=== PATIENT | male | born 1960 | race Caucasian/White ===

== ENCOUNTER → 2017-08-31 | Outpatient (CLI) | payer BC ==
[~2017-08-31] MED LIST: AMOX500T PO; AMOX875T PO; BACL20TA PO; FURO-85 PO; INSDGI SC; MULT-506 PO; NAPR-1169 PO; NRN/300 PO; NVLG SC; VANC1SUS PO; VENL1CAP92 PO
[2017-08-31 18:24] LABS: BLOOD UREA NITROGEN 18 mg/dl (7-18); CREATININE 1.17 mg/dl (0.60-1.40)
--- NOTE | 2017-09-16 07:56 | CODING QUERY NO DIAGNOSIS ---
: 1960 TREATMENT RENDERED WITHOUT A DIAGNOSIS To promote full compliance with coding requirements relating to patient care, physician participation is requested in all cases of religion professor uncertainty. Please assist us with providing a diagnosis/symptom for the test(s) below: A diagnosis/symptom was not documented on your Order. A valid diagnosis/symptom is required to bill all insurances. Please remember that we are unable to code a diagnosis of rule out, probable, possible, questionable, or suspected. Tests that require a diagnosis for DOS 08/31/17: * BUN DIAGNOSIS: * CREATININE DIAGNOSIS: Provider Signature: Date: Thank you Abbie Lemon [employer] Once completed, please kindly fax back to [phone] For questions please call [phone]
== END | disposition home or self-care (01) ==
LOC: C.LAB 17:32
PROVIDERS: ATTEND Internal Medicine Infectious Disease
DX: Z01.89 Encounter for other specified special examinations (principal)

== ENCOUNTER → 2017-09-05 | Outpatient (CLI) | payer BC ==
[~2017-09-05] MED LIST changes: -AMOX500T PO; -AMOX875T PO; +GADAVIST IV PRN; +VANC1SUS; -VANC1SUS PO
--- NOTE | 2017-09-05 21:56 | DIAGNOSTIC IMAGING REPORT ---
L LOWER EXT NONJOINT COMBO CLINICAL HISTORY: 57 years-old Male presenting with LEFT FOOT, 1ST MRP, wound on left foot at the first metatarsal joint, chronic over 2 years, no pain, on antibiotics, history of second metatarsal amputation. TECHNIQUE: Multisequence, multiplanar MR imaging of the left foot was performed before and after the administration of intravenous contrast. IV contrast: 10 mL of Gadavist. COMPARISON: None. FINDINGS: Localizer images: Unremarkable. Extensive subcutaneous edema and skin thickening along the dorsum of the foot extending proximally to the level of the hindfoot/lateral malleolus. Minimal subcutaneous edema noted along the medial aspect of the hindfoot overlying the medial malleolus. Postsurgical changes of amputation of the distal and middle phalanges and head of the proximal phalanx of the second toe. T2 hyperintensity and T1 hypointensity of the head/distal metaphysis of the proximal phalanx of the third toe with involvement of the base of the middle phalanx of the third toe. The remainder of the phalanges demonstrate normal bone marrow signal intensity. The metatarsophalangeal joints demonstrate degenerative change but are otherwise normal. T2 hyperintensity and T1 hypointensity of the base and proximal diaphysis of the fifth metatarsal with intra-articular obliquely oriented fracture plane across the base of the fifth metatarsal evident. IMPRESSION: 1. Intra-articular fracture of the base of the fifth metatarsal with suspected reactive bone marrow edema. This may be subacute. 2. Abnormal bone marrow signal intensity in the head of the proximal phalanx of the third toe and base of the middle phalanx of the third toe concerning for osteomyelitis/septic arthritis of the proximal interphalangeal joint. 3. No other sites of osteomyelitis or septic arthritis suspected. 4. Extensive subcutaneous edema along the dorsum of the foot. Correlate for cellulitis. Electronically signed by: Bobby Montiel M.D. 09/05/2017 9:55 PM Dictated Date/Time: 09/05/2017 9:48 PM
== END | disposition home or self-care (01) ==
LOC: C.MRI 19:32
PROVIDERS: ATTEND Physician Assistant
DX: S91.105A Unspecified open wound of left lesser toe(s) without damage to nail, initial encounter (principal); X58.XXXA Exposure to other specified factors, initial encounter; R93.7 Abnormal findings on diagnostic imaging of other parts of musculoskeletal system; R60.0 Localized edema

== ENCOUNTER 2017-09-20 11:29 | Emergency (ER) | payer BC ==
[~2017-09-20] VITALS: Ht 172.7 cm; Wt 105.5 kg
[~2017-09-20 11:29] MED LIST changes: +AMOX500T PO; -GADAVIST IV PRN
[2017-09-20 11:34] VITALS: TEMP 36.4; Ht 172.7 cm; Wt 105.5 kg
[2017-09-20] MEDS ORDERED: SODIUM CHLORIDE 0.9% 1000ML 1,000 ML IV STA (11:59)
[2017-09-20] MEDS ORDERED: ONDANSETRON INJ 2 MG/ML 2 ML VIAL IV STA (11:59)
[2017-09-20 12:27] LABS: BASO % 0.1 %; BASO ABS # 0.02 K/uL (0-0.2); COMPLETE YES; HEMATOCRIT 44.1 % (42-52); IG% 0.3 %; LYMPH % 7.3 %; LYMPH ABS # 1.12 K/uL (1.2-3.4); MEAN CELL VOLUME 87.2 fL (80-100); MEAN CORPUSCULAR HEMOGLOBIN 30.4 pg (25-34); MEAN CORPUSCULAR HGB CONC 34.9 g/dl (32-36); MEAN PLATELET VOLUME 11.7 fL (7.4-10.4); MONO % 6.6 %; NEUT % 85.7 %; PLATELET COUNT 147 K/uL (130-400); RED BLOOD COUNT 5.06 M/uL (4.7-6.1); WHITE BLOOD COUNT 15.32 K/uL (4.8-10.8)
[2017-09-20 12:48] LABS: BUN/CREATININE RATIO 16.2 (10-20); CREATININE 1.48 mg/dl (0.60-1.40); POTASSIUM 3.4 mmol/L (3.5-5.1)
[2017-09-20] MEDS ORDERED: POTASSIUM CHLORIDE 10 MEQ TABCR PO STA (13:18)
[2017-09-20 14:10] VITALS: BP 123/61; PULSE 74; O2SAT 94
--- NOTE | 2017-09-20 17:27 | EMERGENCY ROOM VISIT NOTE ---
History Report prepared by Corby: Sarbjit Bullock Under the Supervision of: Dr. Ruperto Mancuso D.O. First contact with patient: 11:39 Chief Complaint: DIARRHEA Stated Complaint: C DIFF OSTEO MYLITIS INFECTION History of Present Illness The patient is a 57 year old male who presents to the Emergency Room with complaints of persistent diarrhea starting last night. The patient notes that he currently has C Diff, and last night he had a flare up. The patient states that he has had C Diff for three months. He was initially on Flagyl for 10 days , then 125mg of vancomycin for 6 weeks, and then he was switched to 500mg of vancomycin four times per day starting yesterday. The patient additionally notes that he currently has osteomyelitis in his toe, and he is currently on Augmentin for and follows up with the wound clinic. He notes that he has not been urinating very much recently. Pt denies headache, change in vision, fevers , chest pain, shortness of breath, nausea, vomiting, pain with urination, and melena. Source of History: patient Onset: last night Position: other (global) Quality: other (diarrhea) Timing: other (persistent) Associated Symptoms: No nausea, No vomiting, No abdominal pain Review of Systems See HPI for pertinent positives & negatives. A total of 10 systems reviewed and were otherwise negative. Past Medical & Surgical Medical Problems: (1) C. difficile colitis (2) Foot abscess, left Social History Smoking Status: Never Smoker Drug Use: none Marital Status: Occupation Status: employed Current/Historical Medications Scheduled Amoxicillin & Pot Clavulanate (Augmentin 500MG), 1 TAB PO BID Baclofen (Lioresal), 4 TABS PO QID Furosemide (Lasix), 20 MG PO QAM Gabapentin (Neurontin), 300 MG PO TID Insulin Aspart (Novolog), 1 DOSE SC UD Insulin Glargine (Lantus), 40 UNITS SC QPM Multivitamin (Multivitamin), 1 TAB PO QPM Venlafaxine Hcl (Effexor Xr), 1 CAP PO QAM Scheduled PRN Naproxen (Naprosyn), 500 MG PO BID PRN for Pain Miscellaneous Medications Vancomycin HCl (Vancomycin HCl + Syrspend) Allergies Coded Allergies: Linagliptin (Verified Allergy, Severe, ANAPHYLAXIS AND SORES ON TONGUE, ) Sitagliptin (Verified Allergy, Severe, ANAPHYLAXIS AND SORES ON TONGUE, ) Physical Exam Vital Signs Date Time Temp Pulse Resp B/P (MAP) Pulse Ox O2 Delivery O2 Flow Rate FiO2 09/20/17 14:10 74 18 123/61 94 09/20/17 13:11 84 18 116/88 95 Room Air 09/20/17 11:34 36.4 93 20 138/88 97 Room Air Physical Exam GENERAL: Sitting up in bed, disheveled, no acute distress. EYE EXAM: normal conjunctiva. OROPHARYNX: no exudate, no erythema, lips, buccal mucosa, and tongue normal and mucous membranes are dry. NECK: supple, no nuchal rigidity, no adenopathy, non-tender LUNGS: Clear to auscultation. Normal chest wall mechanics HEART: no murmurs, S1 normal and S2 normal ABDOMEN: abdomen soft, non-tender, normo-active bowel sounds, no masses, no rebound or guarding. BACK: Back is symmetrical on inspection and there is no deformity, no midline tenderness, no CVA tenderness. SKIN: no rashes and no bruising UPPER EXTREMITIES: upper extremities are grossly normal. LOWER EXTREMITIES: 1 x 1.5cm ulcer on the plantar surface of the first MTP on the left foot. No pitting edema. NEURO EXAM: Normal sensorium, cranial nerves II-XII grossly intact, normal speech, no gross weakness of arms, no gross weakness of legs. Gross sensation intact. Medical Decision & Procedures Laboratory Results 09/20/17 12:05 Red Blood Count 5.06, Mean Corpuscular Volume 87.2, Mean Corpuscular Hemoglobin 30.4, Mean Corpuscular Hemoglobin Concent 34.9, Mean Platelet Volume 11.7, Neutrophils (%) (Auto) 85.7, Lymphocytes (%) (Auto) 7.3, Monocytes (%) (Auto) 6.6, Eosinophils (%) (Auto) 0.0, Basophils (%) (Auto) 0.1, Neutrophils # (Auto) 13.13, Lymphocytes # (Auto) 1.12, Monocytes # (Auto) 1.01, Eosinophils # (Auto) 0.00, Basophils # (Auto) 0.02 09/20/17 12:05 Test 09/20/17 12:05 White Blood Count 15.32 K/uL (4.8-10.8) Red Blood Count 5.06 M/uL (4.7-6.1) Hemoglobin 15.4 g/dL (14.0-18.0) Hematocrit 44.1 % (42-52) Mean Corpuscular Volume 87.2 fL (80-100) Mean Corpuscular Hemoglobin 30.4 pg (25-34) Mean Corpuscular Hemoglobin Concent 34.9 g/dl (32-36) Platelet Count 147 K/uL (130-400) Mean Platelet Volume 11.7 fL (7.4-10.4) Neutrophils (%) (Auto) 85.7 % Lymphocytes (%) (Auto) 7.3 % Monocytes (%) (Auto) 6.6 % Eosinophils (%) (Auto) 0.0 % Basophils (%) (Auto) 0.1 % Neutrophils # (Auto) 13.13 K/uL (1.4-6.5) Lymphocytes # (Auto) 1.12 K/uL (1.2-3.4) Monocytes # (Auto) 1.01 K/uL (0.11-0.59) Eosinophils # (Auto) 0.00 K/uL (0-0.5) Basophils # (Auto) 0.02 K/uL (0-0.2) RDW Standard Deviation 45.5 fL (36.4-46.3) RDW Coefficient of Variation 14.3 % (11.5-14.5) Immature Granulocyte % (Auto) 0.3 % Immature Granulocyte # (Auto) 0.04 K/uL (0.00-0.02) Anion Gap 12.0 mmol/L (3-11) Est Creatinine Clear Calc Drug Dose 64.8 ml/min Estimated GFR () 60.0 Estimated GFR (Non- 51.8 BUN/Creatinine Ratio 16.2 (10-20) Calcium Level 9.0 mg/dl (8.5-10.1) Total Bilirubin 1.6 mg/dl (0.2-1) Direct Bilirubin 0.3 mg/dl (0-0.2) Aspartate Amino Transf (AST/SGOT) 21 U/L (15-37) Alanine Aminotransferase (ALT/SGPT) 27 U/L (12-78) Alkaline Phosphatase 115 U/L (45-117) Total Protein 7.6 gm/dl (6.4-8.2) Albumin 3.4 gm/dl (3.4-5.0) Lipase 80 U/L (73-393) Laboratory results per my review. Medications Administered Medications (Trade) Dose Ordered Sig/Guillermo Route Start Time Stop Time Status Last Admin Dose Admin Sodium Chloride 1,000 ml @ 999 mls/hr Q1H1M STAT IV 09/20/17 11:59 09/20/17 12:59 DC 09/20/17 12:08 999 MLS/HR Ondansetron HCl (Zofran Inj) 4 mg NOW STAT IV 09/20/17 11:59 09/20/17 12:00 DC 09/20/17 12:14 4 MG Potassium Chloride (Klor-Con M10) 40 meq NOW STAT PO 09/20/17 13:18 09/20/17 13:19 DC 09/20/17 14:00 40 MEQ ED Course ED COURSE: Vital signs were reviewed and showed normal vitals The patients medical record was reviewed The above diagnostic studies were performed and reviewed. ED treatments and interventions as stated above. 1139: The patient was evaluated in room B6. A complete history and physical examination was performed. 1159: Zofran 4mg IV, Sodium Chloride 1000 ml @ 999 mls/hr IV 1315: I discussed the patient's case with Dr. Olson - Infectious Disease, and she recommends following up as an outpatient. 1318: Potassium Chloride 40meq PO 1319: Upon reevaluation, the patient is doing well.I discussed my findings with the patient and he understands and agrees with the treatment plan. Based on the patients age, coexisting illnesses, exam and lab findings the decision to treat as an outpatient was made. The patient remained stable while under my care. The patient appeared well at the time of discharge. Medical Decision Differential diagnoses includes but is not limited to gastritis, peptic ulcer disease, GERD, gallbladder disease, pancreatitis, small bowel obstruction, acute coronary syndrome, pericarditis, ischemic bowel, irritable bowel disease, irritable bowel syndrome, appendicitis, diverticulitis, malignancy, hernia, urinary tract infection, torsion, perforation, trauma, infectious. Patient is a 57-year-old male presents to ER for diarrhea which worsened last night. He has been treated for C. difficile for over 2 months. He's been on oral Flagyl and then vancomycin 125 mg. Yesterday he was increased to 500 mg of oral vancomycin 4 times a day. CBC shows a leukocytosis of 15,000. BMP shows a mild hyponatremia with potassium 3.4. Creatinine is 1.4. T bili 1.6. Lipase and LFTs were normal. Patient has absolutely no abdominal pain. No imaging obtained. No signs of peritonitis. Discussed with infectious disease. They recommended continuing the antibiotics and patient follow-up as an outpatient. Patient was updated bedside. He is discharged follow-up. Discussed with Pt concerning signs and symptoms to watch out for. Pt was instructed to follow up with their PCP and discussed with the patient their option to return to the ED at anytime for persistent or worsening symptoms. The appropriate anticipatory guidance and out-patient management, including indications for return to the emergency department, were explained at length to the patient and understood. Medication Reconcilliation Current Medication List: was personally reviewed by me Blood Pressure Screening Patient's blood pressure: Normal blood pressure Consults Time Called: 1313 Consulting Physician: Dr. Olson Returned Call: 1315 I discussed the patient's case with Dr. Olson - Infectious Disease, and she recommends following up as an outpatient. Impression Primary Impression: C. difficile diarrhea Additional Impressions: Osteomyelitis Hypokalemia Scribe Attestation The scribe's documentation has been prepared under my direction and personally reviewed by me in its entirety. I confirm that the note above accurately reflects all work, treatment, procedures, and medical decision making performed by me. Departure Information Dispostion Home / Self-Care Referrals Naun Salcedo M.D. (PCP) Forms HOME CARE DOCUMENTATION FORM, IMPORTANT VISIT INFORMATION, WORK / SCHOOL INSTRUCTIONS Patient Instructions Clostridium Difficile Infec, My [facility] Additional Instructions Please follow up with your primary care doctor with in the next 24 hours. Any worsening of your symptoms, please return to the ED immediately. This includes any fevers greater than 100.4, worsening pain, chest pain, shortness breath, persistent nausea, vomiting, unable to eat or drink, or any other concerning signs or symptoms from your standpoint. Continue your antibiotics and follow-up with infectious disease and primary care doctor within 24 hours. Problem Qualifiers Additional Impressions: Osteomyelitis Osteomyelitis type: unspecified type Osteomyelitis location: unspecified site Qualified Codes: M86.9 - Osteomyelitis, unspecified
== END 2017-09-20 14:12 | disposition home or self-care (01) ==
LOC: C.EDB 11:32
DX: A04.72 Enterocolitis due to Clostridium difficile, not specified as recurrent (principal); M86.9 Osteomyelitis, unspecified; E87.6 Hypokalemia; D72.829 Elevated white blood cell count, unspecified; Z87.19 Personal history of other diseases of the digestive system; Z79.4 Long term (current) use of insulin; Z79.899 Other long term (current) drug therapy; Z88.8 Allergy status to other drugs, medicaments and biological substances

== ENCOUNTER → 2017-10-05 | Outpatient (CLI) | payer BC ==
[~2017-10-05] MED LIST changes: +AMOX875T PO; +CEFD300C2 PO; +CEPH500C2 PO; -NAPR-1169 PO; +NAPR-22 PO; +SULF800T23 PO; +VANC1CAP3 PO; -VANC1SUS; +VANC1SUS PO; -VENL1CAP92 PO; +VENL37.52 PO
== END | disposition home or self-care (01) ==
LOC: C.RDSM 11:49
PROVIDERS: ATTEND Physical Medicine & Rehabilitation Sports Medicine
DX: M86.9 Osteomyelitis, unspecified (principal)

== ENCOUNTER 2017-10-07 11:39 | Emergency (ER) | payer BC ==
[~2017-10-07] VITALS: Ht 172.7 cm; Wt 100.0 kg
[~2017-10-07 11:39] MED LIST changes: -AMOX875T PO; -CEFD300C2 PO; -CEPH500C2 PO; -SULF800T23 PO; -VANC1CAP3 PO
[2017-10-07 11:44] VITALS: TEMP 36.6; Ht 172.7 cm; Wt 100.0 kg
--- NOTE | 2017-10-07 12:31 | EMERGENCY ROOM VISIT NOTE ---
History Report prepared by Corby: Rod Ortiz Under the Supervision of: Dr. Gregg Martinez M.D. First contact with patient: 11:57 Chief Complaint: FOOT PAIN Stated Complaint: FOOT BRUISING, HX OF OSTEOMYELITIS W/OPEN WOUND History of Present Illness The patient is a 57 year old white male with a past medical history of C. Diff, DM2, osteomyelitis of the spine and the foot, titanium brace placement who presents to the ED with a cc of constant foot pain beginning last night. Positive left foot blood blister. Negative change in insulin. The patient states that he follows up with wound care for his history of foot problems and states that there was no issues two days ago. He states that last night a blood blister on his left foot popped in the middle of the night. He reports that his whole foot blackened the next day. Per the patient's EMR, the patient had a grade 1 diabetic ulcer on his left foot. The debridement was performed on 10/[address] Robledo. The patient states that he has been using Mulu and has been changing his wound dressings every days. Source of History: patient Onset: last night Position: foot (left) Quality: other (blister) Timing: constant Review of Systems See HPI for pertinent positives and negatives. A total of ten systems were reviewed and were otherwise negative. Past Medical & Surgical Medical Problems: (1) C. difficile colitis (2) Foot abscess, left Family History Patient reports no known family medical history. Social History Smoking Status: Never Smoker Drug Use: none Marital Status: Occupation Status: employed Current/Historical Medications Scheduled Baclofen (Lioresal), 40 MG PO QID Furosemide (Lasix), 20 MG PO QAM Gabapentin (Neurontin), 300 MG PO TID Insulin Aspart (Novolog), 1 DOSE SC UD Insulin Glargine (Lantus), 40 UNITS SC QPM Multivitamin (Multivitamin), 1 TAB PO QPM Vancomycin HCl (Vancomycin HCl + Syrspend), 1 DOSE PO SLIDING SCALE Venlafaxine Hcl (Effexor Xr), 1 CAP PO QAM Scheduled PRN Naproxen (Naprosyn), 500 MG PO BID PRN for Pain Allergies Coded Allergies: Linagliptin (Verified Allergy, Severe, ANAPHYLAXIS AND SORES ON TONGUE, ) Sitagliptin (Verified Allergy, Severe, ANAPHYLAXIS AND SORES ON TONGUE, ) Physical Exam Vital Signs Date Time Temp Pulse Resp B/P (MAP) Pulse Ox O2 Delivery O2 Flow Rate FiO2 10/07/17 14:38 64 18 136/91 99 Room Air 10/07/17 11:44 36.6 61 18 135/84 98 Room Air Physical Exam GENERAL: Awake, alert, well-appearing, NAD, obese HENT: Normocephalic, atraumatic. EYES: Normal conjunctiva. Sclera non-icteric. NECK: Supple. No nuchal rigidity. FROM. RESPIRATORY: CTAB, no rhonchi, wheezing, crackles CARDIAC: RRR, no MRG ABDOMEN: Soft, NTND, BS+ MSK: No chest wall TTP, no LE edema NEURO: GCS 15, CN 2-12 intact, moves all 4s on command SKIN: No rash or jaundice noted. blistering to left great toe plantar aspect of the distal foot at the bases of the first and second phalanx of the foot. Stage 2 ulcer to the proximal of the first phalanx. Expanding redness up to the midfoot on the dorsal aspect Medical Decision & Procedures ER Provider Diagnostic Interpretation: X-ray: Per my interpretation, radiologist review. RIGHT FOOT 3 VIEWS CLINICAL HISTORY: Diabetic ulcer. Hemorrhagic bullae. FINDINGS: 3 views of the right foot are obtained. No prior studies are available for comparison at the time of dictation. The skeletal structures are osteopenic. There is a hallux valgus deformity with arthritic change at the first metatarsophalangeal joint. There is dilatation of the second toe through the distal shaft of the second proximal phalanx. There is a subacute appearing/healing fracture through the base of the fifth metatarsal. Arthritic changes present involving the interphalangeal joints of the third toe. No bony erosion or periostitis is identified. A large plantar calcaneal enthesophyte is observed. Diffuse soft tissue edema is present throughout the foot, greatest in the first toe. Small foci of subcutaneous gas are suggested medial to the first metatarsophalangeal joint, possibly resulting ulceration. No radiodense foreign body is identified. IMPRESSION: 1. There is a subacute appearing/healing fracture through the base of the fifth metatarsal. 2. Osteopenia, hallux valgus, and arthritic change as above. 3. 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 4. Diffuse soft tissue edema is present throughout the foot, greatest in the first toe. 5. Foci of subcutaneous gas are seen medial to the first metatarsophalangeal joint and may be related to ulceration. Clinical correlation will be essential. Electronically signed by: London Mendoza M.D. 10/07/2017 1:28 PM Dictated Date/Time: 10/07/2017 1:26 PM Laboratory Results 10/07/17 13:15 Red Blood Count 4.95, Mean Corpuscular Volume 88.9, Mean Corpuscular Hemoglobin 29.9, Mean Corpuscular Hemoglobin Concent 33.6, Mean Platelet Volume 11.7, Neutrophils (%) (Auto) 55.7, Lymphocytes (%) (Auto) 35.9, Monocytes (%) (Auto) 5.1, Eosinophils (%) (Auto) 2.6, Basophils (%) (Auto) 0.6, Neutrophils # (Auto) 3.86, Lymphocytes # (Auto) 2.49, Monocytes # (Auto) 0.35, Eosinophils # (Auto) 0.18, Basophils # (Auto) 0.04 10/07/17 13:15 Test 10/07/17 13:15 10/07/17 13:16 White Blood Count 6.93 K/uL (4.8-10.8) Red Blood Count 4.95 M/uL (4.7-6.1) Hemoglobin 14.8 g/dL (14.0-18.0) Hematocrit 44.0 % (42-52) Mean Corpuscular Volume 88.9 fL (80-100) Mean Corpuscular Hemoglobin 29.9 pg (25-34) Mean Corpuscular Hemoglobin Concent 33.6 g/dl (32-36) Platelet Count 145 K/uL (130-400) Mean Platelet Volume 11.7 fL (7.4-10.4) Neutrophils (%) (Auto) 55.7 % Lymphocytes (%) (Auto) 35.9 % Monocytes (%) (Auto) 5.1 % Eosinophils (%) (Auto) 2.6 % Basophils (%) (Auto) 0.6 % Neutrophils # (Auto) 3.86 K/uL (1.4-6.5) Lymphocytes # (Auto) 2.49 K/uL (1.2-3.4) Monocytes # (Auto) 0.35 K/uL (0.11-0.59) Eosinophils # (Auto) 0.18 K/uL (0-0.5) Basophils # (Auto) 0.04 K/uL (0-0.2) RDW Standard Deviation 44.9 fL (36.4-46.3) RDW Coefficient of Variation 13.8 % (11.5-14.5) Immature Granulocyte % (Auto) 0.1 % Immature Granulocyte # (Auto) 0.01 K/uL (0.00-0.02) Erythrocyte Sedimentation Rate 25 mm/hr (0-14) Anion Gap 5.0 mmol/L (3-11) Est Creatinine Clear Calc Drug Dose 128.0 ml/min Estimated GFR () 119.3 Estimated GFR (Non- 103.0 BUN/Creatinine Ratio 27.1 (10-20) Lactic Acid Level 1.6 mmol/L (0.4-2.0) Calcium Level 9.0 mg/dl (8.5-10.1) C-Reactive Protein 0.61 mg/dl (0-0.29) Venous Blood pH 7.34 (7.36-7.41) Venous Blood Partial Pressure CO2 61 mmHg (38.0-50.0) Venous Blood Partial Pressure O2 20 mmHg Venous Blood HCO3 32 mmol/L Venous Blood Oxygen Saturation < 60.0 % Venous Blood Base Excess 4.4 mEq/L Laboratory results reviewed by me Procedure Incision & Drainage Indication: Bullae. Location: R foot Verbal consent was obtained after the risks and benefits were explained, including but not limited to bleeding, scarring, infection, pain, and bone/joint /nerve damage. At this time, the risks of the procedure are less than the risks of NOT performing the procedure. A time out was taken and the correct patient and site identified. The skin was prepped with betadine and a sterile field set. The bullae cavity was entered with a number 11 blade and serous material expressed. Copious irrigation was performed using NS. The wound was explored for foreign bodies and none found. The skin was removed which exposed normal healthy tissue. Aquacel was applied over the tissue. The rest of the wound was bandaged and secured in appropriate fashion. Detailed wound care instructions and signs and symptoms of worsening infection reviewed with the patient. No complications and the patient tolerated the procedure well. ED Course 1213: The patient was evaluated in room C05. A complete history and physical exam was performed. 1305: I discussed the patients case with Dr. Robledo, [facility] [place] [facility]. He suggests I open up the blisters and use Aquacel pads. He states there should be no antibiotic use and he will see the patient on Tuesday for a follow up. 1320: I reevaluated the patient and updated him on his results. 1420: I performed an incision and drainage. See procedure notes for further detail 1431: I reevaluated the patient. Discussed results and discharge instructions: He verbalized understanding and agreement. The patient is ready for discharge. Medical Decision Triage Nursing notes reviewed. The patient is a 57 year old white male with a past medical history of C. Diff, DM2, osteomyelitis of the spine and the foot, titanium brace placement who presents to the ED with a cc of constant foot pain beginning last night. The patient's presentation and history were concerning for Etiologies such as cellulitis, abscess, MRSA infection, DVT, necrotizing fasciitis, dermatitis, drug eruption, as well as others were entertained. Patient was seen and evaluated the bedside. Patient is a history of chronic right foot ulcer. Patient is that he had a large blood blister that ruptured early this morning. Patient denies any other systemic symptoms. Patient did have blood work that was completed along with a right foot film. Patient had a normal white blood cell count normal kidney function. Patient did have mild elevations ESR and CRP. Patient did have a VBG was completed that does show he has some hypercarbia however the patient's bicarbonate is 31 this is likely chronic in nature. Patient did have a normal lactic acid. Patient did have plain film that did show some soft tissue swelling and subcutaneous gas however this is likely related to the bulla that were present on the foot. I do not believe that the patient has necrotizing fasciitis is the patient has a normal white blood cell count, sodium, along with the patient's history and physical exam. I did speak with his wound care clinic physician Dr. Robledo recommended that we debride the wound, send a wound culture, and have him follow up in clinic. Patient does have a scheduled appointment on Tuesday. Patient tolerated the procedure well and the patient did have some Aquacel that was placed in addition to some gauze. Dr. Robledo asked for us to avoid any antibiotics. Patient was deemed suitable for outpatient follow-up and treatment the patient does have an outpatient appointment. Patient was given strict follow-up, discharge, and return precautions. All questions were answered. Patient was deemed suitable for outpatient follow-up at this time. Patient agreed with the plan of care and was safely discharged home. Medication Reconcilliation Current Medication List: was personally reviewed by me Blood Pressure Screening Patient's blood pressure: Elevated blood pressure Blood pressure disposition: Referred to PCP Consults Time Called: 1303 Consulting Physician: [facility] Returned Call: 1305 I discussed the patients case with [facility]. He suggests I open up the blisters and use Aquacel pads. He states there should be no antibiotic use and he will see the patient on Tuesday for a follow up. Impression Primary Impression: Skin bulla Additional Impression: Diabetic foot ulcer Scribe Attestation The scribe's documentation has been prepared under my direction and personally reviewed by me in its entirety. I confirm that the note above accurately reflects all work, treatment, procedures, and medical decision making performed by me. Departure Information Dispostion Home / Self-Care Referrals Alee Santo CRNP (PCP) Patient Instructions Diabetic Foot Ulcer Dc, ED Wound Care, [facility] Additional Instructions Please return to the emergency department if you have worsening or recurrent symptoms not amenable to at-home treatment. Please call for a follow-up appointment with her primary care physician. Please take your medications as prescribed. If you have other concerns and/or complaints please feel free to also call your primary care physician's office or return the ED for further evaluation, management, and treatment. You were found to have an elevated blood pressure today (>120 sytolic or >90 diastolic). Per medicare guidelines, you need to follow up with this blood pressure screening with your Primary Care Physician (PCP). For a new PCP call [phone]. You may take tylenol 1000 mg every 6 hours as needed for pain. Avoid NSAIDs and please continue to do your daily dressing changes as described. Please keep her follow-up appointment with Dr. Robledo. Take your medications as prescribed. If taking an antibiotic consider taking a probiotic and/or eating yogurt, but at the least, please take with food as it can cause upset stomach. If culture results are not available at discharge, if they are positive for concern of infection, you will be informed of the results as soon as they are available. If you were seen between 11pm and 7AM all radiology reads will be re-read by our in house staff. If any major discrepancies are discovered, you will be notified. You have been examined and treated today on an emergency basis only. This is not a substitute for, or an effort to provide, complete comprehensive medical care. It is impossible to recognize and treat all injuries or illnesses in a single emergency department visit. It is therefore important that you follow up closely with [facility], your PCP, and/or your specialist(s). Call as soon as possible for an appointment. Thank you for your time and consideration. I look forward to speaking with you again soon. Please don't hesitate to call us if you have any questions. Problem Qualifiers Additional Impression: Diabetic foot ulcer Diabetic foot ulcer location: midfoot Diabetes mellitus type: type 1 Laterality: left Non-pressure ulcer stage: with fat layer exposed Qualified Codes: E10.621 - Type 1 diabetes mellitus with foot ulcer; L97.422 - Non- pressure chronic ulcer of left heel and midfoot with fat layer exposed
--- NOTE | 2017-10-07 13:30 | DIAGNOSTIC IMAGING REPORT ---
RIGHT FOOT 3 VIEWS CLINICAL HISTORY: Diabetic ulcer. Hemorrhagic bullae. FINDINGS: 3 views of the right foot are obtained. No prior studies are available for comparison at the time of dictation. The skeletal structures are osteopenic. There is a hallux valgus deformity with arthritic change at the first metatarsophalangeal joint. There is dilatation of the second toe through the distal shaft of the second proximal phalanx. There is a subacute appearing/healing fracture through the base of the fifth metatarsal. Arthritic changes present involving the interphalangeal joints of the third toe. No bony erosion or periostitis is identified. A large plantar calcaneal enthesophyte is observed. Diffuse soft tissue edema is present throughout the foot, greatest in the first toe. Small foci of subcutaneous gas are suggested medial to the first metatarsophalangeal joint, possibly resulting ulceration. No radiodense foreign body is identified. IMPRESSION: 1. There is a subacute appearing/healing fracture through the base of the fifth metatarsal. 2. Osteopenia, hallux valgus, and arthritic change as above. 3. 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 4. Diffuse soft tissue edema is present throughout the foot, greatest in the first toe. 5. Foci of subcutaneous gas are seen medial to the first metatarsophalangeal joint and may be related to ulceration. Clinical correlation will be essential. Electronically signed by: London Mendoza M.D. 10/07/2017 1:28 PM Dictated Date/Time: 10/07/2017 1:26 PM
[2017-10-07 13:45] LABS: BASO % 0.6 %; BASO ABS # 0.04 K/uL (0-0.2); EOS % 2.6 %; EOS ABS # 0.18 K/uL (0-0.5); HEMOGLOBIN 14.8 g/dL (14.0-18.0); IG# 0.01 K/uL (0.00-0.02); LYMPH % 35.9 %; LYMPH ABS # 2.49 K/uL (1.2-3.4); MEAN CELL VOLUME 88.9 fL (80-100); MEAN CORPUSCULAR HEMOGLOBIN 29.9 pg (25-34); MEAN CORPUSCULAR HGB CONC 33.6 g/dl (32-36); MEAN PLATELET VOLUME 11.7 fL (7.4-10.4); MONO % 5.1 %; MONO ABS # 0.35 K/uL (0.11-0.59); NEUT % 55.7 %; NEUT ABS # 3.86 K/uL (1.4-6.5); PLATELET COUNT 145 K/uL (130-400); RED CELL DISTRIBUTION WIDTH CV 13.8 % (11.5-14.5); RED CELL DISTRIBUTION WIDTH SD 44.9 fL (36.4-46.3); WHITE BLOOD COUNT 6.93 K/uL (4.8-10.8)
[2017-10-07 14:03] LABS: CREATININE 0.73 mg/dl (0.60-1.40)
[2017-10-07 14:38] VITALS: BP 136/91; PULSE 64; O2SAT 99
[2017-10-11] MEDS ORDERED: VANC1SUS PO (09:24)
--- NOTE | 2017-10-11 13:46 | Pharmacy Progress Note ---
ED Pharmacist Culture FollowUp Date of Service: Oct 11, 2017. Patient was discharged with no antibiotics at the request of Dr. Robledo wound care until patient seen in wound care on 10/11. Surface wound cultures growing MSSA and proteus mirabilis. Called clinic and left message at [phone]. Call returned ~ [phone] by Katrina. Let her know of positive culture results, she thought that provider was aware but would follow-up with provider.
[2017-10-12] MEDS ORDERED: AMOX875T PO (10:22)
[2017-10-24] MEDS ORDERED: AMOX875T PO (12:44)
[2017-10-31] MEDS ORDERED: CEFD300C2 PO (13:47)
[2018-03-30] MEDS ORDERED: SULF800T23 PO (10:58)
[2018-04-03] MEDS ORDERED: VANC1CAP3 PO (10:08)
[2018-05-11] MEDS ORDERED: CEPH500C2 PO (11:42)
== END 2017-10-07 15:07 | disposition home or self-care (01) ==
LOC: C.EDB 11:40 → C.EDC 15:07
DX: R23.8 Other skin changes (principal); E11.621 Type 2 diabetes mellitus with foot ulcer; L97.422 Non-pressure chronic ulcer of left heel and midfoot with fat layer exposed; Z79.4 Long term (current) use of insulin; Z79.899 Other long term (current) drug therapy; E66.9 Obesity, unspecified

== ENCOUNTER → 2017-10-31 | Outpatient (CLI) | payer OTHER ==
[~2017-10-31] MED LIST changes: -AMOX500T PO; +AMOX875T PO; +CEFD300C2 PO; +NAPR-1169 PO; -NAPR-22 PO; +VENL1CAP92 PO; -VENL37.52 PO
== END | disposition home or self-care (01) ==
LOC: C.RDSM 11:00
PROVIDERS: ATTEND Physical Medicine & Rehabilitation Sports Medicine
DX: E11.621 Type 2 diabetes mellitus with foot ulcer (principal); M86.9 Osteomyelitis, unspecified; M79.672 Pain in left foot

== ENCOUNTER 2020-10-24 11:06 | Inpatient (IN) ==
[2020-10-24] MEDS ORDERED: MoRPHine SULFATE 4 MG/ML 1 ML CARP\\VIAL IV STA (11:49)
[2020-10-24] MEDS ORDERED: ONDANSETRON INJ 2 MG/ML 2 ML VIAL IV STA (11:49)
--- NOTE | 2020-10-24 11:57 | Emergency Department Note ---
History of Present Illness General Chief complaint: Toe Injury/Pain Stated complaint: GANGRENE LEFT GREAT TOE Time Seen by Provider: 10/24/20 11:17 History of Present Illness This patient is a 60-year-old male who presents emergency department via private vehicle for evaluation of an infection to his left great toe that has been going on for approximately 1 week. The patient accidentally hit his toe off of his wheelchair. Since then, he has noticed a wound to the medial aspect of the left toe. It has been oozing pus since then. He denies any fevers. He has neuropathy; therefore, the pain has not been significant. He has not taken anything for pain. He denies any other injuries. The patient has a history of diabetes. Home Medications Medication Instructions Recorded Confirmed Type Levemir U-100 Insulin 48 unit SUBCUT DAILY@1700 #0 08/02/17 10/24/20 History baclofen 40 mg PO HS #0 08/02/17 10/24/20 History gabapentin 300 mg PO TID #0 08/02/17 10/24/20 History lactobacillus combination no.4 3,000 mmu cells PO DAILY@1500 04/15/19 10/24/20 History [Probiotic] multivitamin 1 tab PO DAILY@2100 10/24/20 10/24/20 History Allergies Allergy/AdvReac Type Severity Reaction Status Date / Time linagliptin Allergy Severe ANAPHYLAXIS Verified 10/24/20 11:57 AND SORES ON TONGUE sitagliptin Allergy Severe ANAPHYLAXIS Verified 10/24/20 11:57 AND SORES ON TONGUE pantoprazole [From Protonix] AdvReac Unknown C-Diff Verified 10/24/20 11:57 Past Med/Surg History Medical History (Updated 10/24/20 @ 19:18 by Jessica Macias PA-C) Acquired claw toe of right foot Acquired hallux valgus of right foot Amputated toe of left foot Callus Diabetes mellitus, type 2 IDDM Gastric outlet obstruction Hallux valgus (acquired), left foot Hyperlipidemia Left midfoot ulcer Obesity Osteomyelitis of low back 04/2014 Patient's noncompliance with other medical treatment and regimen Type 2 diabetes mellitus with diabetic neuropathy Type 2 diabetes mellitus with diabetic polyneuropathy Surgical History H/O skin graft SKIN GRAFT- NON-HEALING LEFT GREAT TOE History of appendectomy History of colonoscopy History of elbow surgery left History of lumbar surgery multiple Family History Father Family history of diabetes mellitus Brother Family history of diabetes mellitus Social History Smoking Status: Never smoker Second Hand Exposure: No; Hx Alcohol Use: Yes Alcohol type: beer and wine Hx Substance Use: No Preferred Language: Eritrean Communication Ability: Effective Shank Inspector Required: No Beliefs That Will Affect Care: None Current Living Situation: Family Other Information That Helps Us Care for You: No Feels Safe at Home: Yes Safety Concerns: Feels Safe At This Time Assistive Devices: Wheelchair Review of Systems A total of 10 systems reviewed and were otherwise negative Physical Exam Vital Signs Vital Signs - 24 hr 10/24/20 11:08 10/24/20 11:59 10/24/20 13:07 Temperature 35.6 C L Temperature Source Oral Pulse Rate 74 Pulse Rate [Apical] 88 Respiratory Rate 20 18 Respiratory Effort / Characteristics Non-Labored Spontaneous Respiratory Depth Normal Respiratory Pattern Regular Blood Pressure 144/87 H Blood Pressure [Left Arm] 138/94 Blood Pressure Mean 106 Blood Pressure Mean [Left Arm] 108 Pulse Oximetry 98 98 98 Oxygen Delivery Method Room Air Room Air Room Air Sepsis Recent Fever Within 48 Hours No Sepsis New/Unexplained Change in Mental Status N/A Sepsis Action Taken by Nursing No Action Required 10/24/20 15:00 Temperature Temperature Source Pulse Rate Pulse Rate [Apical] 80 Respiratory Rate Respiratory Effort / Characteristics Respiratory Depth Respiratory Pattern Blood Pressure Blood Pressure [Left Arm] Blood Pressure Mean Blood Pressure Mean [Left Arm] Pulse Oximetry 98 Oxygen Delivery Method Room Air Sepsis Recent Fever Within 48 Hours Sepsis New/Unexplained Change in Mental Status Sepsis Action Taken by Nursing Constitutional WD/WN, vitals as above Eyes EOM intact bilaterally ENMT external ear and nose normal, oropharynx normal Neck trachea midline Respiratory normal respiratory effort, lungs clear to auscultation Cardiovascular RRR, no murmur, no edema Gastrointestinal (Abdomen) normal bowel sounds, soft, nontender, no hepatosplenomegaly Musculoskeletal 1.5 cm circular wound that is oozing green purulent fluid noted to the medial aspect of the left great toe. The entire toe is erythematous and warm to touch. Erythema noted to the entire left foot. Sensation in the toes on the left foot intact. No erythematous streaking noted over the left lower extremity. Skin no rashes, warm and dry Neurologic Alert and oriented x3. No focal motor deficits. Psychiatric Acting appropriately Course Course Patient was seen and examined Vital signs including blood pressure were reviewed medications list was verified with patient Labs were obtained, and a saline lock was established Sepsis work-up was ordered. Normal saline 1 L was ordered The area was cultured Imaging was performed and reviewed Upon reevaluation, the patient was resting comfortably. We discussed his results. He voiced understanding. The case was discussed with pharmacy in addition to my supervising physician who is in agreement with my plan. The case was then discussed with the admitting team. They agreed to evaluate the patient for likely inpatient management. Consultations Consultation #1: Dr. Nicholas Administered Medications Baclofen (Baclofen 20 Mg Tab) 40 mg PO HS [facility] Stop: 11/23/20 20:59 Last Admin: 10/24/20 22:52 Dose: 40 mg Documented by: [id number] Enoxaparin Sodium (Enoxaparin Inj 40 Mg/0.4 Ml Syr) 40 mg SQ Q12H [facility] Stop: 11/23/20 20:59 Last Admin: 10/25/20 08:33 Dose: 40 mg Documented by: [id number] Admin: 10/24/20 20:53 Dose: 40 mg Documented by: [id number] Gabapentin (Gabapentin 300 Mg Cap) 300 mg PO TID [facility] Stop: 11/23/20 20:59 Last Admin: 10/25/20 08:33 Dose: 300 mg Documented by: [id number] Admin: 10/24/20 20:54 Dose: 300 mg Documented by: [id number] Meropenem 500 mg/ Syringe 10 mls @ 2 mls/min IV Q8H ZA; Protocol Stop: 10/31/20 21:59 Last Admin: 10/25/20 05:59 Dose: 2 mls/min Documented by: [id number] Admin: 10/24/20 21:08 Dose: 2 mls/min Documented by: [id number] Insulin Aspart (Insulin Aspart 100 Units/Ml 3 Ml Pen) 0 units SC ACHS [facility] Stop: 11/23/20 17:28 Last Admin: 10/24/20 20:56 Dose: 3 units Documented by: [id number] Cosigned by: [id number] Admin: 10/24/20 19:06 Dose: Not Given Documented by: [id number] Cosigned by: [id number] Insulin Detemir (Insulin Detemir Flexpen/Flex Touch 100 Units/Ml 3ml) 48 units SC DAILY@1700 [facility] Stop: 11/23/20 17:59 Last Admin: 10/24/20 19:03 Dose: 30 units Documented by: [id number] Cosigned by: [id number] Multivitamins (Multivitamin Tab) 1 tab PO DAILY@2100 [facility] Stop: 11/23/20 20:59 Last Admin: 10/24/20 20:54 Dose: 1 tab Documented by: [id number] Saccharomyces Boulardii (Saccharomyces Boulardii 250 Mg Cap) 250 mg PO DAILY [facility] Stop: 11/23/20 15:44 Last Admin: 10/25/20 09:23 Dose: 250 mg Documented by: [id number] Admin: 10/24/20 18:54 Dose: Not Given Documented by: [id number] Discontinued Medications Sodium Chloride (Nss 1000ml) 1,000 mls @ 999 mls/hr IV .Q1H1M [facility] Stop: 10/24/20 13:00 Last Infusion: 10/24/20 13:31 Dose: 0 mls/hr Documented by: [id number] Admin: 10/24/20 12:22 Dose: 999 mls/hr Documented by: [id number] Meropenem 500 mg/ Syringe 10 mls @ 2 mls/min IV NOW STA; Protocol Stop: 10/24/20 12:41 Last Admin: 10/24/20 13:44 Dose: 2 mls/min Documented by: [id number] Daptomycin 500 mg/ Syringe 10 mls @ 5 mls/min IV NOW STA; Protocol Stop: 10/24/20 12:39 Last Admin: 10/24/20 13:45 Dose: 5 mls/min Documented by: [id number] Morphine Sulfate (Morphine Sulfate 4 Mg/Ml 1 Ml Carp\Vial) 4 mg IV NOW STA Stop: 10/24/20 11:50 Last Admin: 10/24/20 12:22 Dose: 4 mg Documented by: [id number] Ondansetron HCl (Ondansetron Inj 2 Mg/Ml 2 Ml Vial) 4 mg IV NOW STA Stop: 10/24/20 11:50 Last Admin: 10/24/20 12:22 Dose: 4 mg Documented by: [id number] Medical Decision Making Medical Records Attestation: I reviewed the patient's medical records. Home Medications Current Medication List: was personally reviewed by me Laboratory Data Attestation: I reviewed the patient's lab results. Result diagrams: 10/24/20 12:16 10/25/20 05:37 Lab Results 10/24/20 10/24/20 10/24/20 Range/Units 12:16 12:16 12:16 WBC 8.88 (4.8-10.8) K/uL RBC 5.24 (4.7-6.1) M/uL Hgb 15.6 (14.0-18.0) g/dL Hct 45.9 (42-52) % MCV 87.6 (80-100) fL MCH 29.8 (25-34) pg MCHC 34.0 (32-36) g/dL RDW Std Deviation 42.7 (36.4-46.3) fL RDW Coeff of Fer 13.4 (11.5-14.5) % Plt Count 201 (130-400) K/uL MPV 10.5 H (7.4-10.4) fL Immature Gran % (Auto) 0.2 % Neut % (Auto) 65.7 % Lymph % (Auto) 27.3 % Anderson % (Auto) 5.4 % Eos % (Auto) 1.1 % Baso % (Auto) 0.3 % Neut # (Auto) 5.83 (1.4-6.5) K/uL Lymph # (Auto) 2.42 (1.2-3.4) K/uL Anderson # (Auto) 0.48 (0.11-0.59) K/uL Eos # (Auto) 0.10 (0-0.5) K/uL Baso # (Auto) 0.03 (0-0.2) K/uL Immature Gran # (Auto) 0.02 (0.00-0.02) K/uL PT 11.1 (9.0-12.0) Seconds INR 1.1 (0.9-1.1) APTT 28.7 (21.0-31.0) Seconds PTT Ratio 1.0 Sodium 140 (136-145) mmol/L Potassium 3.5 (3.5-5.1) mmol/L Chloride 105 (98-107) mmol/L Carbon Dioxide 26 (21-32) mmol/L Anion Gap 10.0 (3-11) BUN 15 (7-18) mg/dl Creatinine 0.80 (0.6-1.4) mg/dl Est Cr Clr Drug Dosing 114.2 ml/min Est GFR ( Amer) 112.5 Est GFR (Non-Af Amer) 97.1 BUN/Creatinine Ratio 19.2 (10-20) Glucose 107 H (70-99) mg/dl Lactate (0.4-2.0) mmol/L Calcium 10.0 (8.5-10.1) mg/dl Magnesium 2.2 (1.8-2.4) mg/dl Total Bilirubin 0.9 (0.2-1) mg/dl AST 38 H (15-37) U/L ALT 49 (12-78) U/L Alkaline Phosphatase 158 H (45-117) U/L Total Protein 8.5 H (6.4-8.2) gm/dl Albumin 3.5 (3.4-5.0) gm/dl Globulin 4.9 H (2.5-4.0) gm/dl Albumin/Globulin Ratio 0.7 L (0.9-2) Procalcitonin (0-0.5) ng/ml COVID-19 Eval Order SARS-CoV-2, RNA, NAAT (NEGATIVE) 10/24/20 10/24/20 10/24/20 Range/Units 12:16 12:37 14:00 WBC (4.8-10.8) K/uL RBC (4.7-6.1) M/uL Hgb (14.0-18.0) g/dL Hct (42-52) % MCV (80-100) fL MCH (25-34) pg MCHC (32-36) g/dL RDW Std Deviation (36.4-46.3) fL RDW Coeff of Fer (11.5-14.5) % Plt Count (130-400) K/uL MPV (7.4-10.4) fL Immature Gran % (Auto) % Neut % (Auto) % Lymph % (Auto) % Anderson % (Auto) % Eos % (Auto) % Baso % (Auto) % Neut # (Auto) (1.4-6.5) K/uL Lymph # (Auto) (1.2-3.4) K/uL Anderson # (Auto) (0.11-0.59) K/uL Eos # (Auto) (0-0.5) K/uL Baso # (Auto) (0-0.2) K/uL Immature Gran # (Auto) (0.00-0.02) K/uL PT (9.0-12.0) Seconds INR (0.9-1.1) APTT (21.0-31.0) Seconds PTT Ratio Sodium (136-145) mmol/L Potassium (3.5-5.1) mmol/L Chloride (98-107) mmol/L Carbon Dioxide (21-32) mmol/L Anion Gap (3-11) BUN (7-18) mg/dl Creatinine (0.6-1.4) mg/dl Est Cr Clr Drug Dosing ml/min Est GFR ( Amer) Est GFR (Non-Af Amer) BUN/Creatinine Ratio (10-20) Glucose (70-99) mg/dl Lactate 1.2 (0.4-2.0) mmol/L Calcium (8.5-10.1) mg/dl Magnesium (1.8-2.4) mg/dl Total Bilirubin (0.2-1) mg/dl AST (15-37) U/L ALT (12-78) U/L Alkaline Phosphatase (45-117) U/L Total Protein (6.4-8.2) gm/dl Albumin (3.4-5.0) gm/dl Globulin (2.5-4.0) gm/dl Albumin/Globulin Ratio (0.9-2) Procalcitonin 1.47 H (0-0.5) ng/ml COVID-19 Eval [facility] SARS-CoV-2, RNA, NAAT (NEGATIVE) 10/24/20 Range/Units 14:00 WBC (4.8-10.8) K/uL RBC (4.7-6.1) M/uL Hgb (14.0-18.0) g/dL Hct (42-52) % MCV (80-100) fL MCH (25-34) pg MCHC (32-36) g/dL RDW Std Deviation (36.4-46.3) fL RDW Coeff of Fer (11.5-14.5) % Plt Count (130-400) K/uL MPV (7.4-10.4) fL Immature Gran % (Auto) % Neut % (Auto) % Lymph % (Auto) % Anderson % (Auto) % Eos % (Auto) % Baso % (Auto) % Neut # (Auto) (1.4-6.5) K/uL Lymph # (Auto) (1.2-3.4) K/uL Anderson # (Auto) (0.11-0.59) K/uL Eos # (Auto) (0-0.5) K/uL Baso # (Auto) (0-0.2) K/uL Immature Gran # (Auto) (0.00-0.02) K/uL PT (9.0-12.0) Seconds INR (0.9-1.1) APTT (21.0-31.0) Seconds PTT Ratio Sodium (136-145) mmol/L Potassium (3.5-5.1) mmol/L Chloride (98-107) mmol/L Carbon Dioxide (21-32) mmol/L Anion Gap (3-11) BUN (7-18) mg/dl Creatinine (0.6-1.4) mg/dl Est Cr Clr Drug Dosing ml/min Est GFR ( Amer) Est GFR (Non-Af Amer) BUN/Creatinine Ratio (10-20) Glucose (70-99) mg/dl Lactate (0.4-2.0) mmol/L Calcium (8.5-10.1) mg/dl Magnesium (1.8-2.4) mg/dl Total Bilirubin (0.2-1) mg/dl AST (15-37) U/L ALT (12-78) U/L Alkaline Phosphatase (45-117) U/L Total Protein (6.4-8.2) gm/dl Albumin (3.4-5.0) gm/dl Globulin (2.5-4.0) gm/dl Albumin/Globulin Ratio (0.9-2) Procalcitonin (0-0.5) ng/ml COVID-19 Eval Order SARS-CoV-2, RNA, NAAT NEGATIVE (NEGATIVE) Imaging Data Attestation: I personally reviewed and interpreted this imaging study as follows: Radiologist's Impression: X-ray left toe IMPRESSION: 1. No acute bony abnormality is identified. 2. There is a soft tissue ulceration the first toe with evidence of surrounding cellulitis and associated soft tissue edema. 3. A tiny metallic foreign bodies present within the plantar soft tissues of the fifth toe. 4. Osteopenia, hallux valgus, with chronic postoperative, posttraumatic, and degenerative changes as above. Electronically signed by: London Mendoza M.D. 10/24/2020 12:35 PM Dictated: 10/24/20 1232 Transcribed: 10/24/20 1232 [facility] Narrative Differential diagnosis: Osteomyelitis, cellulitis, sepsis, DVT, PAD, among others This patient is a pleasant 60-year-old male who presents the emergency department complaining of inflammation of his left great toe after an injury. On exam, he does have an ulceration to the left great toe. It is draining purulent fluid.. He is afebrile. He was neurovascularly intact. A work-up was performed. There is no leukocytosis. X-ray of the toe was performed. No signs of osteomyelitis. The patient does not have any erythematous streaking up the leg. I do not suspect sepsis. The patient has however grown out antibiotic resistant bacteria in the past. For this reason and do to his comorbidities, I felt it was appropriate to consult the hospitalist for possible inpatient management. I also consulted pharmacy. He was given broad-spectrum antibiotics in the emergency department. He will be evaluated for likely inpatient management. Impression & Plan Cellulitis Discharge Plan Visit Data Chief Complaint: Toe Injury/Pain Stated Complaint: GANGRENE LEFT GREAT TOE ED Provider: Felipe Quinonez ED Midlevel Provider: Jessica Macias Discharge Problem: Cellulitis Patient Disposition: Admitted As Inpatient Condition: Fair Discharge Instructions Interventions: ED Discharge Assessment Last Done: 10/24/20 17:11
[2020-10-24] MEDS ORDERED: SODIUM CHLORIDE 0.9% 1000ML 1,000 ML IV SCH (12:00)
--- NOTE | 2020-10-24 12:36 | XRay Report ---
LEFT FIRST TOE 3 VIEWS CLINICAL HISTORY: First toe infection. FINDINGS: 3 views of the left first toe are correlated with radiographs of left foot dated 10/05/2017 . The skeletal structures are osteopenic. No acute fracture is identified. There is hallux valgus wit h moderate osteoarthritic change at the first metatarsophalangeal joint. Mild osteoarthritic change i s seen at the first interphalangeal joint. No bony erosion or periostitis is identified. A cutaneous defect along the medial aspect of the first toe suggests ulceration. There is diffuse soft tissue sridhar ma. There is amputation of the second toe through the shaft of the second proximal phalanx. Erosive o steoarthritic change is again seen at the third proximal interphalangeal joint. A tiny metallic forei gn body is seen within the soft tissues of the fifth toe. There is chronic posttraumatic deformity at the base of the fifth metatarsal. IMPRESSION: 1. No acute bony abnormality is identified. 2. There is a soft tissue ulceration the first toe with evidence of surrounding cellulitis and associ ated soft tissue edema. 3. A tiny metallic foreign bodies present within the plantar soft tissues of the fifth toe. 4. Osteopenia, hallux valgus, with chronic postoperative, posttraumatic, and degenerative changes as above. Electronically signed by: London Mendoza M.D. 10/24/2020 12:35 PM
[2020-10-24 12:37] LABS: Basophils # (auto) 0.03 K/uL (0-0.2); Basophils % (auto) 0.3 %; Eosinophils % (auto) 1.1 %; Hematocrit (blood only) 45.9 % (42-52); Hemoglobin 15.6 g/dL (14.0-18.0); Immature Granulocytes # (auto) 0.02 K/uL (0.00-0.02); Immature Granulocytes % (auto) 0.2 %; Lymphocytes # (auto) 2.42 K/uL (1.2-3.4); Lymphocytes % (auto) 27.3 %; Mean Corpuscular Hemoglobin 29.8 pg (25-34); Mean Corpuscular Volume 87.6 fL (80-100); Mean Platelet Volume 10.5 fL (7.4-10.4); Monocytes # (auto) 0.48 K/uL (0.11-0.59); Monocytes % (auto) 5.4 %; Neutrophils # (auto) 5.83 K/uL (1.4-6.5); Neutrophils % (auto) 65.7 %; Platelet Count 201 K/uL (130-400); RDW Coefficient of Variation 13.4 % (11.5-14.5); RDW Standard Deviation 42.7 fL (36.4-46.3); Red Blood Count 5.24 M/uL (4.7-6.1); White Blood Count 8.88 K/uL (4.8-10.8)
[2020-10-24] MEDS ORDERED: MEROPENEM 500 MG in SYRINGE 0 ML IV STA (12:37)
[2020-10-24] MEDS ORDERED: DAPTOmycin 500 MG in SYRINGE 0 ML IV STA (12:38)
[2020-10-24 12:48] LABS: INR 1.1 (0.9-1.1); Partial Thromboplastin Time 28.7 Seconds (21.0-31.0); Prothrombin Time 11.1 Seconds (9.0-12.0)
[2020-10-24 12:55] LABS: Albumin Level 3.5 gm/dl (3.4-5.0); BUN Creatinine Ratio 19.2 (10-20); Creatinine Clr Calc Pharmacy 114.2 ml/min; Est GFR (African American) 112.5; Est GFR (Non-African American) 97.1; Magnesium 2.2 mg/dl (1.8-2.4); Potassium 3.5 mmol/L (3.5-5.1)
[2020-10-24 12:59] LABS: Albumin Globulin Ratio 0.7 (0.9-2); Bilirubin,Total 0.9 mg/dl (0.2-1); Globulin 4.9 gm/dl (2.5-4.0); Total Protein 8.5 gm/dl (6.4-8.2)
--- NOTE | 2020-10-24 14:16 | History & Physical Report ---
Date of Service October 24, 2020 Assessment & Plan (1) Diabetic foot ulcer associated with type 2 diabetes mellitus: Pending culture results. Patient is broadly covered to include MRSA and pseudomonas. Appreciate pharmacy assistance. - await cultures, source control, dressing debridement, glucose control. - Trend biomarkers (2) GERD (gastroesophageal reflux disease): Continue lactobacillus. Patient states that symptoms are controlled, may have component of gastropaeresis. 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 Thank you for input and assistance. (6) Metabolic syndrome X: As above. Glucose control, monitor stress response, follow organ dysfunction. (7) DVT prophylaxis: VTE: SCD's, Lovenox Code: Full Diet: 1600 ada FSBG <160 Disposition-could possibly discharged home on p.o. Cipro and Keflex tomorrow while awaiting cultures after being seen by wound care if has close follow-up planned with wound care as an outpatient History of Present Illness Primary Care Provider: Naun Salcedo MD 60-year-old male comes emergency room for evaluation of her left great toe ulceration. Patient has a history of diabetes, kidney disease, multiple diabetic foot ulcers, C. difficile, osteomyelitis to spine in 2015 (following fall) and left second toe infection in 2017 resulting in amputation. Patient accidentally hit toe on his wheelchair approximately 1 week, while he was confused secondary to feeling ill from a "cold or flu" and tried to walk; resulting in hitting his toe on his wheel chair. The wound is associated with mild erythema, purulent drainage, and neuropathy is present as always. Patient was taking care of the wound at home with peroxide and algae dressing that he had left over. Yesterday in the shower "the blister" popped and "drained a large amount of yellow green fluid" per the patient. The drainage also had a strong odor to it. Patient has multiple wound cultures from the past July 2018 and September 2018 + for Enterococcus faecalis September 26 + for Klebsiella and Proteus mirabilis. Patient received 500 mg Meropenem and Daptomycin in the EMD, wound culture and blood culture pending, 1L 0.9% sodium Chloride. Q sofa 0, no organ dysfunction, normal lactate, PCT 1.47. Will admit patient to medicine floor for antibiotic therapy of diabetic foot ulcer awaiting cultures. Allergies Allergy/AdvReac Type Severity Reaction Status Date / Time linagliptin Allergy Severe ANAPHYLAXIS Verified 10/24/20 11:57 AND SORES ON TONGUE sitagliptin Allergy Severe ANAPHYLAXIS Verified 10/24/20 11:57 AND SORES ON TONGUE pantoprazole [From Protonix] AdvReac Unknown C-Diff Verified 10/24/20 11:57 Home Medications Medication Instructions Recorded Confirmed Type Levemir U-100 Insulin 48 unit SUBCUT DAILY@1700 #0 08/02/17 10/24/20 History baclofen 40 mg PO HS #0 08/02/17 10/24/20 History gabapentin 300 mg PO TID #0 08/02/17 10/24/20 History lactobacillus combination no.4 3,000 mmu cells PO DAILY@1500 04/15/19 10/24/20 History [Probiotic] multivitamin 1 tab PO DAILY@2100 10/24/20 10/24/20 History Past Med/Surg History Medical History (Updated 10/24/20 @ 19:18 by Jessica Macias PA-C) Acquired claw toe of right foot Acquired hallux valgus of right foot Amputated toe of left foot Callus Diabetes mellitus, type 2 IDDM Gastric outlet obstruction Hallux valgus (acquired), left foot Hyperlipidemia Left midfoot ulcer Obesity Osteomyelitis of low back 04/2014 Patient's noncompliance with other medical treatment and regimen Type 2 diabetes mellitus with diabetic neuropathy Type 2 diabetes mellitus with diabetic polyneuropathy Surgical History H/O skin graft SKIN GRAFT- NON-HEALING LEFT GREAT TOE History of appendectomy History of colonoscopy History of elbow surgery left History of lumbar surgery multiple Family History Father Family history of diabetes mellitus Brother Family history of diabetes mellitus Social History Smoking Status: Never smoker Second Hand Exposure: No; Hx Alcohol Use: Yes Alcohol type: beer and wine Hx Substance Use: No Preferred Language: Latvian Communication Ability: Effective Chamber Walker Required: No Beliefs That Will Affect Care: None Current Living Situation: Family Other Information That Helps Us Care for You: No Feels Safe at Home: Yes Safety Concerns: Feels Safe At This Time Assistive Devices: Glasses, Walker and Wheelchair Review of Systems Review of Systems: REVIEW OF SYSTEMS: Constitutional: + fever 1 week ago resolved, (-) sweats or chills Eyes: (+) glasses no worsening of vision, (-) diplopia ENT: normal hearing, no trouble swallowing Respiratory: No cough, sputum, dyspnea at rest or on exertion Cardiovascular: No chest pain, tightness or palpitations Abdomen: (+) diarrhea last week x 1 day (-) pain, nausea, vomiting, constipation Musculoskeletal: (+) pertinent per HPI. No joint pain, calf pain, swelling Neurologic: No weakness, numbness/tingling, or balance problems Psychiatric: No anxiety or depression Skin: No rash or itch Physical Exam Physical Exam: PHYSICAL EXAM: General: awake, alert, no apparent distress Head: Normocephalic, atraumatic ENT: PERRL, EOMI, no pharyngeal exudate, mucous membranes moist Neuro: AAO x 3, speech clear and appropriate, strength intact bilaterally 5/5 upper extremities 4/5 to lowers, (+) nueorpathy to mid lr circumferential, no pronator drift Chest: equal rise and fall of the chest, no accessory muscle use, no heaves or thrills, Clear to auscultation, on room air, Cardiac: Regular rate and rhythm, telemetry reviewed, skin warm dry, cap refill <3 seconds, peripheral pules +2 no JVD, no murmur, no JVD, no edema GI: NABS x 4 quadrants, soft, nontender to palpation, no rebound, guarding or tenderness : Spontaneously voiding, no pain, no CVA tenderness, Extremities: Normal inspection, no peripheral edema or erythema, calfs nontender to palpation Psych: Normal mood and affect Skin: + errythema to left foot, ulceration to underside of left great toe. There is a small exit area from where the bullae/blister popped and this draining purulent drainage with slight fluctuance and some eschar to the toe. Results & Data Results & Data ([facility]) Vital Signs (Past 12 Hours) Vital Signs Temp Pulse Pulse Resp BP BP Pulse Ox 10/24/20 13:07 88 18 138/94 98 10/24/20 11:59 98 10/24/20 11:08 35.6 C L 74 20 144/87 H 98 Laboratory Results 10/24/20 10/24/20 10/24/20 Range/Units 14:00 14:00 12:37 WBC (4.8-10.8) K/uL RBC (4.7-6.1) M/uL Hgb (14.0-18.0) g/dL Hct (42-52) % MCV (80-100) fL MCH (25-34) pg MCHC (32-36) g/dL RDW Std Deviation (36.4-46.3) fL RDW Coeff of Fer (11.5-14.5) % Plt Count (130-400) K/uL MPV (7.4-10.4) fL Immature Gran % (Auto) % Neut % (Auto) % Lymph % (Auto) % [place] % (Auto) % Eos % (Auto) % Baso % (Auto) % Neut # (Auto) (1.4-6.5) K/uL Lymph # (Auto) (1.2-3.4) K/uL [place] # (Auto) (0.11-0.59) K/uL Eos # (Auto) (0-0.5) K/uL Baso # (Auto) (0-0.2) K/uL Immature Gran # (Auto) (0.00-0.02) K/uL PT (9.0-12.0) Seconds INR (0.9-1.1) APTT (21.0-31.0) Seconds PTT Ratio Sodium (136-145) mmol/L Potassium (3.5-5.1) mmol/L Chloride (98-107) mmol/L Carbon Dioxide (21-32) mmol/L Anion Gap (3-11) BUN (7-18) mg/dl Creatinine (0.6-1.4) mg/dl Est Cr Clr Drug Dosing ml/min Est GFR ( Amer) Est GFR (Non-Af Amer) BUN/Creatinine Ratio (10-20) Glucose (70-99) mg/dl Lactate (0.4-2.0) mmol/L Calcium (8.5-10.1) mg/dl Magnesium (1.8-2.4) mg/dl Total Bilirubin (0.2-1) mg/dl AST (15-37) U/L ALT (12-78) U/L Alkaline Phosphatase (45-117) U/L Total Protein (6.4-8.2) gm/dl Albumin (3.4-5.0) gm/dl Globulin (2.5-4.0) gm/dl Albumin/Globulin Ratio (0.9-2) Procalcitonin 1.47 H (0-0.5) ng/ml COVID-19 [facility] SARS-CoV-2, RNA, NAAT NEGATIVE (NEGATIVE) 10/24/20 10/24/20 10/24/20 Range/Units 12:16 12:16 12:16 WBC (4.8-10.8) K/uL RBC (4.7-6.1) M/uL Hgb (14.0-18.0) g/dL Hct (42-52) % MCV (80-100) fL MCH (25-34) pg MCHC (32-36) g/dL RDW Std Deviation (36.4-46.3) fL RDW Coeff of Fer (11.5-14.5) % Plt Count (130-400) K/uL MPV (7.4-10.4) fL Immature Gran % (Auto) % Neut % (Auto) % Lymph % (Auto) % [place] % (Auto) % Eos % (Auto) % Baso % (Auto) % Neut # (Auto) (1.4-6.5) K/uL Lymph # (Auto) (1.2-3.4) K/uL [place] # (Auto) (0.11-0.59) K/uL Eos # (Auto) (0-0.5) K/uL Baso # (Auto) (0-0.2) K/uL Immature Gran # (Auto) (0.00-0.02) K/uL PT 11.1 (9.0-12.0) Seconds INR 1.1 (0.9-1.1) APTT 28.7 (21.0-31.0) Seconds PTT Ratio 1.0 Sodium 140 (136-145) mmol/L Potassium 3.5 (3.5-5.1) mmol/L Chloride 105 (98-107) mmol/L Carbon Dioxide 26 (21-32) mmol/L Anion Gap 10.0 (3-11) BUN 15 (7-18) mg/dl Creatinine 0.80 (0.6-1.4) mg/dl Est Cr Clr Drug Dosing 114.2 ml/min Est GFR ( Amer) 112.5 Est GFR (Non-Af Amer) 97.1 BUN/Creatinine Ratio 19.2 (10-20) Glucose 107 H (70-99) mg/dl Lactate 1.2 (0.4-2.0) mmol/L Calcium 10.0 (8.5-10.1) mg/dl Magnesium 2.2 (1.8-2.4) mg/dl Total Bilirubin 0.9 (0.2-1) mg/dl AST 38 H (15-37) U/L ALT 49 (12-78) U/L Alkaline Phosphatase 158 H (45-117) U/L Total Protein 8.5 H (6.4-8.2) gm/dl Albumin 3.5 (3.4-5.0) gm/dl Globulin 4.9 H (2.5-4.0) gm/dl Albumin/Globulin Ratio 0.7 L (0.9-2) Procalcitonin (0-0.5) ng/ml COVID-19 Eval Order SARS-CoV-2, RNA, NAAT (NEGATIVE) 10/24/20 Range/Units 12:16 WBC 8.88 (4.8-10.8) K/uL RBC 5.24 (4.7-6.1) M/uL Hgb 15.6 (14.0-18.0) g/dL Hct 45.9 (42-52) % MCV 87.6 (80-100) fL MCH 29.8 (25-34) pg MCHC 34.0 (32-36) g/dL RDW Std Deviation 42.7 (36.4-46.3) fL RDW Coeff of Fer 13.4 (11.5-14.5) % Plt Count 201 (130-400) K/uL MPV 10.5 H (7.4-10.4) fL Immature Gran % (Auto) 0.2 % Neut % (Auto) 65.7 % Lymph % (Auto) 27.3 % [place] % (Auto) 5.4 % Eos % (Auto) 1.1 % Baso % (Auto) 0.3 % Neut # (Auto) 5.83 (1.4-6.5) K/uL Lymph # (Auto) 2.42 (1.2-3.4) K/uL [place] # (Auto) 0.48 (0.11-0.59) K/uL Eos # (Auto) 0.10 (0-0.5) K/uL Baso # (Auto) 0.03 (0-0.2) K/uL Immature Gran # (Auto) 0.02 (0.00-0.02) K/uL PT (9.0-12.0) Seconds INR (0.9-1.1) APTT (21.0-31.0) Seconds PTT Ratio Sodium (136-145) mmol/L Potassium (3.5-5.1) mmol/L Chloride (98-107) mmol/L Carbon Dioxide (21-32) mmol/L Anion Gap (3-11) BUN (7-18) mg/dl Creatinine (0.6-1.4) mg/dl Est Cr Clr Drug Dosing ml/min Est GFR ( Amer) Est GFR (Non-Af Amer) BUN/Creatinine Ratio (10-20) Glucose (70-99) mg/dl Lactate (0.4-2.0) mmol/L Calcium (8.5-10.1) mg/dl Magnesium (1.8-2.4) mg/dl Total Bilirubin (0.2-1) mg/dl AST (15-37) U/L ALT (12-78) U/L Alkaline Phosphatase (45-117) U/L Total Protein (6.4-8.2) gm/dl Albumin (3.4-5.0) gm/dl Globulin (2.5-4.0) gm/dl Albumin/Globulin Ratio (0.9-2) Procalcitonin (0-0.5) ng/ml COVID-19 Eval Order SARS-CoV-2, RNA, NAAT (NEGATIVE) Code Status & VTE Plan Code Status VTE: Lovenox Full Supervising Physician Co-Signing Physician Notes 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 History reviewed as above Past medical/past surgical/and other history and ROS reviewed as above Vitals reviewed Gen: AAOx3, NAD, obese, very pleasant HEENT: Anicteric sclerae, EOMI CV: RRR no mgr nl S1S2 Pulm: CTAB no wcr Abd: +BS soft NT ND no masses or hernias Ext: Mild 1+ pitting edema of left ankle, trace pitting edema right leg, 2+ PT pulses bilaterally, 1+ DP pulses bilaterally, missing left second toe Skin: No rashes, warm/dry, left great toe with dressing in place not removed-see physical exam under CANDY DIPPER note, also noted to have cracking skin in the webspace between right fourth and fifth toes Laboratory values reviewed X-ray images personally reviewed at the left toes 60-year-old male with DM 2 with neuropathy and history otherwise as above, here with left great toe diabetic foot wound He has good circulation to the feet With a history of resistant organisms although all the organisms present 2018 were sensitive to p.o. Cipro as this could be an option moving forward No evidence of sepsis or osteomyelitis at this time Continue IV meropenem and daptomycin for now, follow wound culture Wound care nurse consultation placed-May need debridement via wound care MD/surgery/orthopedic surgery/podiatry Could consider discharge to home tomorrow with pending cultures on p.o. Cipro and Keflex based on previous cultures Diabetes control with insulin PG Care Time/CCT Total # of Minutes Spent Total Time Spent with Patient: Total time spent is greater than 50% in coordination of care (as documented) at patient's floor/unit and/or counseling patient: Coding Level of Care Code 33021 OBS Care - Level 3 Diagnoses Diabetic foot ulcer associated with type 2 diabetes mellitus E11.621; L97.421 Diabetic foot ulcer location: midfoot Laterality: left Non-pressure ulcer stage: limited to breakdown of skin GERD (gastroesophageal reflux disease) K21.9 Esophagitis presence: esophagitis presence not specified Type 2 diabetes mellitus with diabetic neuropathy E11.40 Patient's noncompliance with other medical treatment and regimen Z91.19 History of amputation of toe Z89.429 Metabolic syndrome X E88.81 DVT prophylaxis Z29.9 (1) Diabetic foot ulcer associated with type 2 diabetes mellitus Diabetic foot ulcer location: midfoot Laterality: left Non-pressure ulcer stage: limited to breakdown of skin Qualified Code(s): E11.621 - Type 2 diabetes mellitus with foot ulcer; L97.421 - Non-pressure chronic ulcer of left heel and midfoot limited to breakdown of skin (2) GERD (gastroesophageal reflux disease) Esophagitis presence: esophagitis presence not specified Qualified Code(s): K21.9 - Gastro-esophageal reflux disease without esophagitis
[2020-10-24] MEDS ORDERED: MEROPENEM CONSULT ACITVE PRN (17:29)
[2020-10-24] MEDS ORDERED: CARBOHYDRATES FOR HYPOGLYCEMIA PO PRN (17:29)
[2020-10-24] MEDS ORDERED: GLUCOSE 10 TABS/TUBE PO PRN (17:29)
[2020-10-24] MEDS ORDERED: DEXTROSE 50% 50 ML SYRINGE IV PRN (17:29)
[2020-10-24] MEDS ORDERED: GLUCAGON FOR INJ 1 MG VIAL SQ PRN (17:29)
[2020-10-24] MEDS ORDERED: GLUCOSE 40% GEL 15 GM TUBE PO PRN (17:29)
[2020-10-24 18:30] LABS: Appearance Urine Clear (Clear); Bilirubin Urine Negative (Negative); Blood Urine Negative (Negative); Color Urine Yellow; Glucose Urine UA Negative (Negative); Ketones Urine 2+ (Negative); Leukocyte Esterase Urine Negative (Negative); Nitrite Urine Negative (Negative); Protein Urine Negative (Negative); Specific Gravity Urine 1.025 (1.000-1.030); Urobilinogen Urine Negative (Negative)
[2020-10-24] MEDS: SACCHAROMYCES BOULARDII 250 MG CAP PO SCH (18:54)
[2020-10-24] MEDS: INSULIN DETEMIR FLEXPEN/FLEX TOUCH 100 UNITS/ML 3ML SC SCH (19:03)
[2020-10-24] MEDS: INSULIN ASPART 100 UNITS/ML 3 ML PEN SC SCH ×2 (19:06→20:56)
[2020-10-24] MEDS: ENOXAPARIN INJ 40 MG/0.4 ML SYR SQ SCH (20:53)
[2020-10-24] MEDS: MULTIVITAMIN TAB PO SCH (20:54)
[2020-10-24] MEDS: GABAPENTIN 300 MG CAP PO SCH (20:54)
[2020-10-24] MEDS: MEROPENEM 500 MG in SYRINGE 0 ML IV SCH (21:08)
[2020-10-24] MEDS: BACLOFEN 20 MG TAB PO SCH (22:52)
[2020-10-25] MEDS: MEROPENEM 500 MG in SYRINGE 0 ML IV SCH ×3 (05:59→22:39)
[2020-10-25 06:49] LABS: BUN Creatinine Ratio 22.1 (10-20); Calcium 8.7 mg/dl (8.5-10.1); Creatinine Clr Calc Pharmacy 126.9 ml/min; Est GFR (African American) 117.5; Est GFR (Non-African American) 101.4; Magnesium 2.2 mg/dl (1.8-2.4); Potassium 3.5 mmol/L (3.5-5.1)
[2020-10-25 07:30] LABS: Estimated Average Glucose 255 mg/dl; Hemoglobin A1C 10.5 % (4.5-5.6)
[2020-10-25] MEDS: ENOXAPARIN INJ 40 MG/0.4 ML SYR SQ SCH ×2 (08:33→21:11)
[2020-10-25] MEDS: GABAPENTIN 300 MG CAP PO SCH ×3 (08:33→21:10)
[2020-10-25] MEDS: SACCHAROMYCES BOULARDII 250 MG CAP PO SCH (09:23)
[2020-10-25] MEDS: INSULIN ASPART 100 UNITS/ML 3 ML PEN SC SCH ×4 (09:25→21:11)
--- NOTE | 2020-10-25 10:44 | Hospitalist Progress Note ---
Date of Service October 25, 2020 Assessment & Plan (1) Osteomyelitis: 60 yo M w/ PMH significant for uncontrolled DM2 with polyneuropathy and hx multiple foot ulcers + amputation of toe (2016), hx Cdiff, Osteomyelitis of spine (2014) who was admitted for active ulcer of the left great toe and confirmed to have osteomyelitis by MRI. 1. L great toe osteomyelitis - patient hx of growing klebsiella, proteus, E. Faecalis on wounds - toe XR showed soft tissue ulceration and cellulitis - Meropenem and Daptomycin initiated on 10/24 for broad spectrum coverage including MRSA and Pseudomonas - wound culture growing gram negative bacilli - MRI L foot confirmed osteomyelitis of distal phalanx of left first toe - podiatry consulted for management recommendations - wound care following 2. Bacteremia - bcx drawn in ER prior to antibiotic administration - 1 aerobic bottle growing gram positive cocci, MRSA PCR pending - on dapto as above - afebrile, VSS WNL 3. DM2, uncontrolled - A1c 10.5 - 48 u Levemir daily home regimen continued - SSI, 110-140, CF 20, 1:12 CHO - cont gabapentin 300 mg TID for polyneuropathy DVT ppx: lovenox 40 mg SQ Q12 FEN/GI: PO fluids, Diabetic Heart Healthy Diet Code Status: Full Code Dispo: home after care, will require wound care appointments (2) Type 2 diabetes mellitus with diabetic polyneuropathy: (3) History of amputation of toe: (4) GERD (gastroesophageal reflux disease): (5) Bacteremia: Admission and Anticipated Discharge Date Admission Date: October 24, 2020 Supervising Physician Co-Signing Physician Notes Resident Physician Supervision Note: I independently interviewed and examined the patient and verified the nolasco his tory and physical, reviewed labs and image studies, discussed the case with the resident Dr. Zheng and agree with the findings and care plan. Subjective Feeling well with no complaints this morning. States he probably had a fever a few days ago which caused him to hallucinate that he could walk, so he fell out of his wheelchair. When trying to get back into the wheelchair, he stubbed his toe on the metal foot support, causing it to be sliced open. Review of Systems Constitutional: no fever, no chills and no body aches Integumentary: + non-healing lesions, + skin ulcer and + wounds Neurologic: + falls and + loss of sensation Physical Exam Physical Exam: Const: sitting up in bed in NAD Neuro: moving all 4 extremities equally Foot: L great toe with severe dystrophic nail, actively oozing yellow-green wound on medial side of distal toe, approximately half cm deep. Results & Data Results & Data ([facility]) Vital Signs (Past 12 Hours) Vital Signs Temp Pulse Resp BP Pulse Ox 10/25/20 07:36 36.6 C 62 16 117/74 98 10/24/20 23:17 36.9 C 72 16 143/78 H 97 Laboratory Results WBC 8.88 K/uL (4.8-10.8) 10/24/20 12:16 RBC 5.24 M/uL (4.7-6.1) 10/24/20 12:16 Hgb 15.6 g/dL (14.0-18.0) 10/24/20 12:16 Hct 45.9 % (42-52) 10/24/20 12:16 MCV 87.6 fL (80-100) 10/24/20 12:16 MCH 29.8 pg (25-34) 10/24/20 12:16 MCHC 34.0 g/dL (32-36) 10/24/20 12:16 RDW Std Deviation 42.7 fL (36.4-46.3) 10/24/20 12:16 RDW Coeff of Fer 13.4 % (11.5-14.5) 10/24/20 12:16 Plt Count 201 K/uL (130-400) 10/24/20 12:16 MPV 10.5 fL (7.4-10.4) H 10/24/20 12:16 Immature Gran % (Auto) 0.2 % 10/24/20 12:16 Neut % (Auto) 65.7 % 10/24/20 12:16 Lymph % (Auto) 27.3 % 10/24/20 12:16 [place] % (Auto) 5.4 % 10/24/20 12:16 Eos % (Auto) 1.1 % 10/24/20 12:16 Baso % (Auto) 0.3 % 10/24/20 12:16 Neut # (Auto) 5.83 K/uL (1.4-6.5) 10/24/20 12:16 Lymph # (Auto) 2.42 K/uL (1.2-3.4) 10/24/20 12:16 [place] # (Auto) 0.48 K/uL (0.11-0.59) 10/24/20 12:16 Eos # (Auto) 0.10 K/uL (0-0.5) 10/24/20 12:16 Baso # (Auto) 0.03 K/uL (0-0.2) 10/24/20 12:16 Immature Gran # (Auto) 0.02 K/uL (0.00-0.02) 10/24/20 12:16 PT 11.1 Seconds (9.0-12.0) 10/24/20 12:16 INR 1.1 (0.9-1.1) 10/24/20 12:16 APTT 28.7 Seconds (21.0-31.0) 10/24/20 12:16 PTT Ratio 1.0 10/24/20 12:16 Sodium 139 mmol/L (136-145) 10/25/20 05:37 Potassium 3.5 mmol/L (3.5-5.1) 10/25/20 05:37 Chloride 105 mmol/L (98-107) 10/25/20 05:37 Carbon Dioxide 28 mmol/L (21-32) 10/25/20 05:37 Anion Gap 6.0 (3-11) 10/25/20 05:37 BUN 16 mg/dl (7-18) 10/25/20 05:37 Creatinine 0.72 mg/dl (0.6-1.4) 10/25/20 05:37 Est Cr Clr Drug Dosing 126.9 ml/min 10/25/20 05:37 Est GFR ( Amer) 117.5 10/25/20 05:37 Est GFR (Non-Af Amer) 101.4 10/25/20 05:37 BUN/Creatinine Ratio 22.1 (10-20) H 10/25/20 05:37 Glucose 130 mg/dl (70-99) H 10/25/20 05:37 POC Glucose 170 mg/dl (70-99) H 10/25/20 12:58 Estimat Average Glucose 255 mg/dl 10/25/20 05:37 Hemoglobin A1c 10.5 % (4.5-5.6) H 10/25/20 05:37 Lactate 1.2 mmol/L (0.4-2.0) 10/24/20 12:16 Calcium 8.7 mg/dl (8.5-10.1) 10/25/20 05:37 Magnesium 2.2 mg/dl (1.8-2.4) 10/25/20 05:37 Total Bilirubin 0.9 mg/dl (0.2-1) 10/24/20 12:16 AST 38 U/L (15-37) H 10/24/20 12:16 ALT 49 U/L (12-78) 10/24/20 12:16 Alkaline Phosphatase 158 U/L (45-117) H 10/24/20 12:16 Total Protein 8.5 gm/dl (6.4-8.2) H 10/24/20 12:16 Albumin 3.5 gm/dl (3.4-5.0) 10/24/20 12:16 Globulin 4.9 gm/dl (2.5-4.0) H 10/24/20 12:16 Albumin/Globulin Ratio 0.7 (0.9-2) L 10/24/20 12:16 Triglycerides 170 mg/dl (0-150) H 10/25/20 05:37 Cholesterol 118 mg/dl (0-200) 10/25/20 05:37 LDL Cholesterol, Calc 58 mg/dl 10/25/20 05:37 VLDL Cholesterol, Calc 34 mg/dl 10/25/20 05:37 HDL Cholesterol 26 mg/dl 10/25/20 05:37 Cholesterol/HDL Ratio 5 10/25/20 05:37 Procalcitonin 1.47 ng/ml (0-0.5) H 10/24/20 12:37 Urine Color Yellow 10/24/20 18:15 Urine Appearance Clear (Clear) 10/24/20 18:15 Urine pH 5.0 (4.5-7.5) 10/24/20 18:15 Ur Specific [place] 1.025 (1.000-1.030) 10/24/20 18:15 Urine Protein Negative (Negative) 10/24/20 18:15 Urine Glucose (UA) Negative (Negative) 10/24/20 18:15 Urine Ketones 2+ (Negative) H 10/24/20 18:15 Urine Blood Negative (Negative) 10/24/20 18:15 Urine Nitrite Negative (Negative) 10/24/20 18:15 Urine Bilirubin Negative (Negative) 10/24/20 18:15 Urine Urobilinogen Negative (Negative) 10/24/20 18:15 Ur Leukocyte Esterase Negative (Negative) 10/24/20 18:15 COVID-19 Eval Order Covid19 IDNow [facility] 10/24/20 14:00 SARS-CoV-2, RNA, NAAT NEGATIVE (NEGATIVE) 10/24/20 14:00 Toe XR: 1. No acute bony abnormality is identified. 2. There is a soft tissue ulceration the first toe with evidence of surrounding cellulitis and associated soft tissue edema. 3. A tiny metallic foreign bodies present within the plantar soft tissues of the fifth toe. 4. Osteopenia, hallux valgus, with chronic postoperative, posttraumatic, and degenerative changes as above. L foot MRI: 1. Findings consistent with osteomyelitis of the distal phalanx of the left first toe. 2. Left first toe wound with cellulitis and a few small fluid collections that measure up to 8 mm which may reflect small abscesses. 3. Focus of susceptibility artifact along the plantar aspect of the left fifth toe due to foreign body shown on radiographs of October 24, 2020. Resident Activity Tracking Resident Involvement: Resident Care Provided Care Provided: Adult Hospital Medicine (1) GERD (gastroesophageal reflux disease) Esophagitis presence: esophagitis presence not specified Qualified Code(s): K21.9 - Gastro-esophageal reflux disease without esophagitis
--- NOTE | 2020-10-25 13:41 | Magnetic Resonance Report ---
MR foot LT w/o con CLINICAL HISTORY: concern for osteomyelitis COMPARISON STUDY: MRI of the left foot September 05, 2017. Left first toe radiographs October 24 1. TECHNIQUE: Utilizing a 1.5 Kimberly magnet and dedicated coil, multiplanar, multiecho imaging of the lef t forefoot was performed without intravenous contrast. FINDINGS: Note is made of a focus of susceptibility artifact along the plantar aspect of the left fif th toe due to foreign body shown on left foot radiographs of October 24, 2020. Tarsometatarsal joints are intact. Note is made of a wound of the left first toe. Subcutaneous edema of the left first toe is noted. Note is made of a few small fluid collections that measure up to 8 mm along the lateral asp ect of the distal phalanx. There is marked marrow edema within the distal phalanx of the left first t oe. There is mildly diminished T1 signal within the distal phalanx of the left first toe consistent w ith osteomyelitis. No additional sites of marrow edema are present. There is dorsal subcutaneous evelyn a of the left forefoot. IMPRESSION: 1. Findings consistent with osteomyelitis of the distal phalanx of the left first toe. 2. Left first toe wound with cellulitis and a few small fluid collections that measure up to 8 mm whi ch may reflect small abscesses. 3. Focus of susceptibility artifact along the plantar aspect of the left fifth toe due to foreign bod y shown on radiographs of October 24, 2020. ACT 112: Negative or not required by law. Electronically signed by: Dimitri Franco M.D. 10/25/2020 1:40 PM
[2020-10-25] MEDS ORDERED: DAPTOmycin 275 MG in SYRINGE 0 ML IV SCH (14:00)
[2020-10-25] MEDS: INSULIN DETEMIR FLEXPEN/FLEX TOUCH 100 UNITS/ML 3ML SC SCH (17:34)
[2020-10-25] MEDS ORDERED: TROLAMINE SALICYLATE 10% CRM 255 APPLN/85 GM TUBE EXT PRN (18:19)
[2020-10-25] MEDS: ACETAMINOPHEN 500 MG TAB PO PRN (19:31)
[2020-10-25] MEDS: MULTIVITAMIN TAB PO SCH (21:10)
[2020-10-25] MEDS: BACLOFEN 20 MG TAB PO SCH (22:39)
[2020-10-26] MEDS: MEROPENEM 500 MG in SYRINGE 0 ML IV SCH ×2 (05:34→13:47)
[2020-10-26 06:35] LABS: BUN Creatinine Ratio 24.2 (10-20); Calcium 8.7 mg/dl (8.5-10.1); Creatinine Clr Calc Pharmacy 126.9 ml/min; Est GFR (African American) 117.5; Est GFR (Non-African American) 101.4; Magnesium 2.3 mg/dl (1.8-2.4); Potassium 3.3 mmol/L (3.5-5.1)
[2020-10-26] MEDS ORDERED: POTASSIUM CHLORIDE CRTAB 20 MEQ TABCR PO STA (07:14)
[2020-10-26] MEDS: GABAPENTIN 300 MG CAP PO SCH ×3 (08:39→20:56)
[2020-10-26] MEDS: SACCHAROMYCES BOULARDII 250 MG CAP PO SCH (08:39)
[2020-10-26] MEDS: ENOXAPARIN INJ 40 MG/0.4 ML SYR SQ SCH ×2 (08:40→20:56)
[2020-10-26] MEDS: INSULIN ASPART 100 UNITS/ML 3 ML PEN SC SCH ×4 (09:14→20:58)
--- NOTE | 2020-10-26 11:16 | Hospitalist Progress Note ---
Date of Service October 26, 2020 Assessment & Plan (1) Osteomyelitis: 60 yo M w/ PMH significant for uncontrolled DM2 with polyneuropathy and hx multiple foot ulcers + amputation of toe (2016), hx Cdiff, Osteomyelitis of spine (2014) who was admitted for active ulcer of the left great toe and confirmed to have osteomyelitis by MRI. 1. L great toe osteomyelitis - toe XR showed soft tissue ulceration and cellulitis - MRI L foot confirmed osteomyelitis of distal phalanx of left first toe - Wound Culture: Pasteurella Multocida, GBS - Meropenem changed to Ceftriaxone, Daptomycin continued [Abx initiated 10/24] - awaiting podiatry recommendations - wound care following 2. Bacteremia - Blood Culture: Coag Neg Staph (not lugenesis) in 1/3 bottles - continue daptomycin as above - afebrile, VSS WNL 3. DM2, uncontrolled - A1c 10.5 - 48 u Levemir daily home regimen continued - SSI, 110-140, CF 20, 1:12 CHO - cont gabapentin 300 mg TID for polyneuropathy DVT ppx: lovenox 40 mg SQ Q12 FEN/GI: PO fluids, Diabetic Heart Healthy Diet Code Status: Full Code Dispo: home after care, will require wound care appointments (2) Type 2 diabetes mellitus with diabetic polyneuropathy: (3) History of amputation of toe: (4) GERD (gastroesophageal reflux disease): (5) Bacteremia: Admission and Anticipated Discharge Date Admission Date: October 25, 2020 Supervising Physician Co-Signing Physician Notes Resident Physician Supervision Note: I independently interviewed and examined the patient and verified the nolasco history and physical, reviewed labs and image studies, discussed the case with the resident Dr. Zheng and agree with the findings and care plan. Subjective very emotional this morning regarding osteomyelitis diagnosis and possibility of losing great toe. [After having spine surgery in 2014 he was told he would be in a wheelchair for the rest of his life and he is adamant to not let that happen. loss of the big toe is a large setback for his goal here]. Also discussed Cdiff hx -- in 2018 had Cdiff after getting IM antibiotics and received fecal transplant following the infection. Has not had Cdiff since. No reports of diarrhea at this time. Review of Systems Constitutional: no fever, no chills, no body aches and no fatigue Respiratory: no cough and no dyspnea Cardiovascular: no chest pain, no dyspnea and no edema Gastrointestinal: no abdominal pain, no nausea, no vomiting, no constipation and no diarrhea/loose stools Physical Exam Physical Exam: const: sitting in wheelchair with feet propped up on bed Psych: teary, emotional regarding diagnosis, affect and mood congruent, no SI or thoughts of self harm Results & Data Results & Data ([facility]) Vital Signs (Past 12 Hours) Vital Signs Temp Pulse Resp BP Pulse Ox 10/26/20 07:23 36.5 C 67 18 125/84 99 Laboratory Results WBC 8.88 K/uL (4.8-10.8) 10/24/20 12:16 RBC 5.24 M/uL (4.7-6.1) 10/24/20 12:16 Hgb 15.6 g/dL (14.0-18.0) 10/24/20 12:16 Hct 45.9 % (42-52) 10/24/20 12:16 MCV 87.6 fL (80-100) 10/24/20 12:16 MCH 29.8 pg (25-34) 10/24/20 12:16 MCHC 34.0 g/dL (32-36) 10/24/20 12:16 RDW Std Deviation 42.7 fL (36.4-46.3) 10/24/20 12:16 RDW Coeff of Fer 13.4 % (11.5-14.5) 10/24/20 12:16 Plt Count 201 K/uL (130-400) 10/24/20 12:16 MPV 10.5 fL (7.4-10.4) H 10/24/20 12:16 Immature Gran % (Auto) 0.2 % 10/24/20 12:16 Neut % (Auto) 65.7 % 10/24/20 12:16 Lymph % (Auto) 27.3 % 10/24/20 12:16 [place] % (Auto) 5.4 % 10/24/20 12:16 Eos % (Auto) 1.1 % 10/24/20 12:16 Baso % (Auto) 0.3 % 10/24/20 12:16 Neut # (Auto) 5.83 K/uL (1.4-6.5) 10/24/20 12:16 Lymph # (Auto) 2.42 K/uL (1.2-3.4) 10/24/20 12:16 [place] # (Auto) 0.48 K/uL (0.11-0.59) 10/24/20 12:16 Eos # (Auto) 0.10 K/uL (0-0.5) 10/24/20 12:16 Baso # (Auto) 0.03 K/uL (0-0.2) 10/24/20 12:16 Immature Gran # (Auto) 0.02 K/uL (0.00-0.02) 10/24/20 12:16 PT 11.1 Seconds (9.0-12.0) 10/24/20 12:16 INR 1.1 (0.9-1.1) 10/24/20 12:16 APTT 28.7 Seconds (21.0-31.0) 10/24/20 12:16 PTT Ratio 1.0 10/24/20 12:16 Sodium 141 mmol/L (136-145) 10/26/20 05:36 Potassium 3.3 mmol/L (3.5-5.1) L 10/26/20 05:36 Chloride 108 mmol/L (98-107) H 10/26/20 05:36 Carbon Dioxide 30 mmol/L (21-32) 10/26/20 05:36 Anion Gap 3.0 (3-11) 10/26/20 05:36 BUN 17 mg/dl (7-18) 10/26/20 05:36 Creatinine 0.72 mg/dl (0.6-1.4) 10/26/20 05:36 Est Cr Clr Drug Dosing 126.9 ml/min 10/26/20 05:36 Est GFR ( Amer) 117.5 10/26/20 05:36 Est GFR (Non-Af Amer) 101.4 10/26/20 05:36 BUN/Creatinine Ratio 24.2 (10-20) H 10/26/20 05:36 Glucose 88 mg/dl (70-99) 10/26/20 05:36 POC Glucose 250 mg/dl (70-99) H 10/26/20 12:15 Estimat Average Glucose 255 mg/dl 10/25/20 05:37 Hemoglobin A1c 10.5 % (4.5-5.6) H 10/25/20 05:37 Lactate 1.2 mmol/L (0.4-2.0) 10/24/20 12:16 Calcium 8.7 mg/dl (8.5-10.1) 10/26/20 05:36 Magnesium 2.3 mg/dl (1.8-2.4) 10/26/20 05:36 Total Bilirubin 0.9 mg/dl (0.2-1) 10/24/20 12:16 AST 38 U/L (15-37) H 10/24/20 12:16 ALT 49 U/L (12-78) 10/24/20 12:16 Alkaline Phosphatase 158 U/L (45-117) H 10/24/20 12:16 Total Protein 8.5 gm/dl (6.4-8.2) H 10/24/20 12:16 Albumin 3.5 gm/dl (3.4-5.0) 10/24/20 12:16 Globulin 4.9 gm/dl (2.5-4.0) H 10/24/20 12:16 Albumin/Globulin Ratio 0.7 (0.9-2) L 10/24/20 12:16 Triglycerides 170 mg/dl (0-150) H 10/25/20 05:37 Cholesterol 118 mg/dl (0-200) 10/25/20 05:37 LDL Cholesterol, Calc 58 mg/dl 10/25/20 05:37 VLDL Cholesterol, Calc 34 mg/dl 10/25/20 05:37 HDL Cholesterol 26 mg/dl 10/25/20 05:37 Cholesterol/HDL Ratio 5 10/25/20 05:37 Procalcitonin 1.47 ng/ml (0-0.5) H 10/24/20 12:37 Urine Color Yellow 10/24/20 18:15 Urine Appearance Clear (Clear) 10/24/20 18:15 Urine pH 5.0 (4.5-7.5) 10/24/20 18:15 Ur Specific [place] 1.025 (1.000-1.030) 10/24/20 18:15 Urine Protein Negative (Negative) 10/24/20 18:15 Urine Glucose (UA) Negative (Negative) 10/24/20 18:15 Urine Ketones 2+ (Negative) H 10/24/20 18:15 Urine Blood Negative (Negative) 10/24/20 18:15 Urine Nitrite Negative (Negative) 10/24/20 18:15 Urine Bilirubin Negative (Negative) 10/24/20 18:15 Urine Urobilinogen Negative (Negative) 10/24/20 18:15 Ur Leukocyte Esterase Negative (Negative) 10/24/20 18:15 COVID-19 Eval Order Covid19 IDNow [facility] 10/24/20 14:00 SARS-CoV-2, RNA, NAAT NEGATIVE (NEGATIVE) 10/24/20 14:00 Bld Cult Staph aureus PCR Negative (Negative) 10/24/20 12:37 Blood Culture MRSA PCR Negative (Negative) 10/24/20 12:37 Resident Activity Tracking Resident Involvement: Resident Care Provided Care Provided: Adult Hospital Medicine (1) GERD (gastroesophageal reflux disease) Esophagitis presence: esophagitis presence not specified Qualified Code(s): K21.9 - Gastro-esophageal reflux disease without esophagitis
[2020-10-26] MEDS: DAPTOmycin 425 MG in SYRINGE 0 ML IV SCH (14:45)
[2020-10-26] MEDS: ACETAMINOPHEN 500 MG TAB PO PRN (16:36)
[2020-10-26] MEDS: INSULIN DETEMIR FLEXPEN/FLEX TOUCH 100 UNITS/ML 3ML SC SCH (16:37)
[2020-10-26] MEDS: MULTIVITAMIN TAB PO SCH (20:56)
[2020-10-26] MEDS: BACLOFEN 20 MG TAB PO SCH (22:31)
[2020-10-27 06:38] LABS: Basophils # (auto) 0.03 K/uL (0-0.2); Basophils % (auto) 0.4 %; Eosinophils # (auto) 0.19 K/uL (0-0.5); Eosinophils % (auto) 2.6 %; Hemoglobin 14.1 g/dL (14.0-18.0); Immature Granulocytes # (auto) 0.02 K/uL (0.00-0.02); Immature Granulocytes % (auto) 0.3 %; Lymphocytes # (auto) 2.82 K/uL (1.2-3.4); Lymphocytes % (auto) 39.3 %; Mean Corpuscular Hemoglobin 29.7 pg (25-34); Mean Corpuscular Hgb Conc 34.4 g/dL (32-36); Mean Corpuscular Volume 86.3 fL (80-100); Mean Platelet Volume 10.3 fL (7.4-10.4); Monocytes # (auto) 0.46 K/uL (0.11-0.59); Monocytes % (auto) 6.4 %; Neutrophils # (auto) 3.66 K/uL (1.4-6.5); Platelet Count 226 K/uL (130-400); RDW Coefficient of Variation 13.6 % (11.5-14.5); RDW Standard Deviation 42.9 fL (36.4-46.3); Red Blood Count 4.75 M/uL (4.7-6.1); White Blood Count 7.18 K/uL (4.8-10.8)
[2020-10-27 07:15] LABS: BUN Creatinine Ratio 20.3 (10-20); Calcium 9.5 mg/dl (8.5-10.1); Creatinine Clr Calc Pharmacy 132.4 ml/min; Est GFR (African American) 119.6; Est GFR (Non-African American) 103.2; Magnesium 2.2 mg/dl (1.8-2.4); Potassium 3.6 mmol/L (3.5-5.1)
--- NOTE | 2020-10-27 08:14 | Ultrasound Report ---
US arterial duplex LE BI CLINICAL HISTORY: poor pedal pulses, osteomyelitis COMPARISON STUDY: None. FINDINGS: The bilateral ankle brachial indices measure between 1.2 and 1.4. Mild to moderate calcifie d plaque seen throughout the bilateral lower extremity arterial systems. There are normal triphasic t o biphasic waveforms and velocities. No significant stenosis or occlusion identified. IMPRESSION: No significant stenosis or occlusion identified within the bilateral lower extremity art erial systems. ACT 112: Negative or not required by law. Electronically signed by: London Richardson M.D. 10/27/2020 8:13 AM
[2020-10-27] MEDS: GABAPENTIN 300 MG CAP PO SCH ×3 (08:38→20:32)
[2020-10-27] MEDS: SACCHAROMYCES BOULARDII 250 MG CAP PO SCH (08:38)
[2020-10-27] MEDS: ENOXAPARIN INJ 40 MG/0.4 ML SYR SQ SCH ×2 (08:39→20:32)
[2020-10-27] MEDS: INSULIN ASPART 100 UNITS/ML 3 ML PEN SC SCH ×4 (08:40→20:33)
[2020-10-27] MEDS: cefTRIAXone SODIUM 2,000 MG in DEXTROSE 5% 50 ML IV SCH (08:52)
--- NOTE | 2020-10-27 10:57 | Hospitalist Progress Note ---
Date of Service October 27, 2020 Assessment & Plan (1) Osteomyelitis: 60 yo M w/ PMH significant for uncontrolled DM2 with polyneuropathy and hx multiple foot ulcers + amputation of toe (2016), hx Cdiff, Osteomyelitis of spine (2014) who was admitted for active ulcer of the left great toe and confirmed to have osteomyelitis by MRI. 1. L great toe osteomyelitis - toe XR showed soft tissue ulceration and cellulitis - MRI L foot confirmed osteomyelitis of distal phalanx of left first toe - Wound Culture: Pasteurella Multocida, GBS - Meropenem changed to Ceftriaxone, Daptomycin continued [Abx initiated 10/24] - awaiting podiatry recommendations - wound care following 2. Bacteremia - Blood Culture: Coag Neg Staph (not lugenesis) in 1/3 bottles - continue daptomycin as above - afebrile, VSS WNL 3. DM2, uncontrolled - A1c 10.5 - 48 u Levemir daily home regimen continued - SSI, 110-140, CF 20, 1:12 CHO - cont gabapentin 300 mg TID for polyneuropathy DVT ppx: lovenox 40 mg SQ Q12 FEN/GI: PO fluids, Diabetic Heart Healthy Diet Code Status: Full Code Dispo: home after care, will require wound care appointments (2) Type 2 diabetes mellitus with diabetic polyneuropathy: (3) History of amputation of toe: (4) GERD (gastroesophageal reflux disease): (5) Bacteremia: Admission and Anticipated Discharge Date Admission Date: October 25, 2020 Results & Data Results & Data ([facility]) Vital Signs (Past 12 Hours) Vital Signs Temp Pulse Resp BP Pulse Ox 10/27/20 06:41 36.5 C 67 19 132/79 96 10/26/20 23:24 36.4 C L 67 18 150/83 H 97 (1) GERD (gastroesophageal reflux disease) Esophagitis presence: esophagitis presence not specified Qualified Code(s): K21.9 - Gastro-esophageal reflux disease without esophagitis
--- NOTE | 2020-10-27 11:17 | Medical Student Progress Note ---
Date of Service October 27, 2020 Assessment & Plan (1) Osteomyelitis: -Hx diabetic foot ulcers s/p amputation of L. second toe -Foot XR showed soft tissue ulceration and cellulitis of the L. first digit -MRI of foot confirmed osteomyelitis L. first digit - Would culture of toe (+) pasturella multicoida, Group B strep -received meropenam and daptomycin (10/24- 10/26), meropenam dc (10/26), switched to ceftriaxone (10/27) -wound care consulted, following with patient -podiatry consulted, awaiting recs Present on Admission?: Yes (2) Bacteremia: -Blood Cx (+) coag neg staph (not lugenesis) 10/12 vials -WBC stable 7.18 -Positive cx likely to be contaminate; however, in the setting of osteomyelitis, likelihood of bacteremia is very high. Will continue with Abx -Continue to monitor for signs/sx of sepsis; currently low suspicion Present on Admission?: Yes (3) C. difficile colitis: -Hx of Cdiff, received fecal transplant and has never had any further episodes -Currently not experiencing any signs of Cdiff- denies abdominal pain, diarrhea -Continue to monitor for Sx -Continue home med probiotic Present on Admission?: Yes (4) Type 2 diabetes mellitus with diabetic neuropathy: -HgbA1c 10.5 -Inpatient glucose readings have been between 100-250 -Continue home regimen of 48 units of levemir -Insulin sliding scale ordered -Continue home med gabapentin 300 mg TID for peripheral neuropathy Admission and Anticipated Discharge Date Admission Date: October 25, 2020 Supervising Attestation I personally examined the patient and verified all nolasco points of history and exam, discussed case, and agree with decision making with Hazel Suazo MS4. feeling ok. wants to avoid surgery if at all possible discussed DM care and control and role in foot infection (as well as in risk for vascular disease overall) vitals noted nad heent nc at mmm breathing unlabored no accessory muscles L great toe w ulcer some exudate no real tracking erythema DM foot infection w osteomyelitis - continue current abx for now. pt prefers ongoing abx to surgery. given risk of situation - will ask ID for input on optimal regimen DM - uncontrolled. educated extensively - main focus today being critical role for lifestyle in DM control otherwise as above hopefully home tomorrow after ID recs - then ongoing wound/podiatry/PCP f/u Subjective 60 yo M w/ a pmh of DM, osteomyelitis to spine (2014), foot ulcer s/p L. second toe amputation, and C.anna admitted for L. great toe ulceration. Pt accidentally hit his toe on his wheel chair about 1 week ago. Patient had been taking care of the wound at home w/ peroxide and algae dressing. He became concerned under the ulcer popped in the shower and started to drain purulent fluid. ED course was significant for tx w/ 500mg meropenam and daptomycin, wound culture, and blood culture. Today tobin the fourth day of the pt's inpt stay. Overnight, there were no acute events. Wound care was in the room when I went to see the patient. Patient felt that his wound was getting better. He does not have much sensation in the foot and was not experiencing any kind of pain at the wound site. Pt is in a wheelchair, and only gets out of the chair when using the bathroom which he has been able to do. He has not had a bowel movement since admission. Pt denies fever, chills, malaise, but does complain of headache. Describes the headache as a "dull thud" that has is on the top of the head. States the headache has been present since his admission, and is unsure if anything makes it better/worse. Review of Systems Constitutional: denies fevers, chills, malaise, but did experience fever, chills, malaise about a week prior to his admission Eyes: denies changes in vision Respiratory: denies cough, dyspnea Cardiovascular: Additional Comments: denies chest pain, palpitations Gastrointestinal: denies diarrhea, changes in stool, abdominal pain Musculoskeletal: Integumentary: + skin ulcer Psychiatric: denies depression, suicidal ideation Physical Exam Constitutional: well developed, well nourished and + obese Eyes: PERRL, conjunctivae normal, anicteric sclerae ENMT: external ear and nose normal, oropharynx normal Neck: trachea midline, no thyromegaly Respiratory: normal respiratory effort, lungs clear to auscultation Cardiovascular: RRR, no murmur, no edema Gastrointestinal (Abdomen): normal bowel sounds, soft, nontender, no hepatosplenomegaly Musculoskeletal: sharply demarcated erythema that covers the entire L. first phalynx, ulceration to medial underside of L. first phalynx. Neurologic: AAOX3, bilateral decreased sensation of foot Results & Data ([facility]) Vital Signs (Past 12 Hours) Vital Signs Temp Pulse Resp BP Pulse Ox 10/27/20 06:41 36.5 C 67 19 132/79 96 10/26/20 23:24 36.4 C L 67 18 150/83 H 97 Laboratory Results 10/24/20 10/24/20 10/24/20 Range/Units 14:00 14:00 12:37 WBC (4.8-10.8) K/uL RBC (4.7-6.1) M/uL Hgb (14.0-18.0) g/dL Hct (42-52) % MCV (80-100) fL MCH (25-34) pg MCHC (32-36) g/dL RDW Std Deviation (36.4-46.3) fL RDW Coeff of Fer (11.5-14.5) % Plt Count (130-400) K/uL MPV (7.4-10.4) fL Immature Gran % (Auto) % Neut % (Auto) % Lymph % (Auto) % [place] % (Auto) % Eos % (Auto) % Baso % (Auto) % Neut # (Auto) (1.4-6.5) K/uL Lymph # (Auto) (1.2-3.4) K/uL [place] # (Auto) (0.11-0.59) K/uL Eos # (Auto) (0-0.5) K/uL Baso # (Auto) (0-0.2) K/uL Immature Gran # (Auto) (0.00-0.02) K/uL PT (9.0-12.0) Seconds INR (0.9-1.1) APTT (21.0-31.0) Seconds PTT Ratio Sodium (136-145) mmol/L Potassium (3.5-5.1) mmol/L Chloride (98-107) mmol/L Carbon Dioxide (21-32) mmol/L Anion Gap (3-11) BUN (7-18) mg/dl Creatinine (0.6-1.4) mg/dl Est Cr Clr Drug Dosing ml/min Est GFR ( Amer) Est GFR (Non-Af Amer) BUN/Creatinine Ratio (10-20) Glucose (70-99) mg/dl Lactate (0.4-2.0) mmol/L Calcium (8.5-10.1) mg/dl Magnesium (1.8-2.4) mg/dl Total Bilirubin (0.2-1) mg/dl AST (15-37) U/L ALT (12-78) U/L Alkaline Phosphatase (45-117) U/L Total Protein (6.4-8.2) gm/dl Albumin (3.4-5.0) gm/dl Globulin (2.5-4.0) gm/dl Albumin/Globulin Ratio (0.9-2) Procalcitonin 1.47 H (0-0.5) ng/ml COVID-19 [facility] SARS-CoV-2, RNA, NAAT NEGATIVE (NEGATIVE) 10/24/20 10/24/20 10/24/20 Range/Units 12:16 12:16 12:16 WBC (4.8-10.8) K/uL RBC (4.7-6.1) M/uL Hgb (14.0-18.0) g/dL Hct (42-52) % MCV (80-100) fL MCH (25-34) pg MCHC (32-36) g/dL RDW Std Deviation (36.4-46.3) fL RDW Coeff of Fer (11.5-14.5) % Plt Count (130-400) K/uL MPV (7.4-10.4) fL Immature Gran % (Auto) % Neut % (Auto) % Lymph % (Auto) % [place] % (Auto) % Eos % (Auto) % Baso % (Auto) % Neut # (Auto) (1.4-6.5) K/uL Lymph # (Auto) (1.2-3.4) K/uL [place] # (Auto) (0.11-0.59) K/uL Eos # (Auto) (0-0.5) K/uL Baso # (Auto) (0-0.2) K/uL Immature Gran # (Auto) (0.00-0.02) K/uL PT 11.1 (9.0-12.0) Seconds INR 1.1 (0.9-1.1) APTT 28.7 (21.0-31.0) Seconds PTT Ratio 1.0 Sodium 140 (136-145) mmol/L Potassium 3.5 (3.5-5.1) mmol/L Chloride 105 (98-107) mmol/L Carbon Dioxide 26 (21-32) mmol/L Anion Gap 10.0 (3-11) BUN 15 (7-18) mg/dl Creatinine 0.80 (0.6-1.4) mg/dl Est Cr Clr Drug Dosing 114.2 ml/min Est GFR ( Amer) 112.5 Est GFR (Non-Af Amer) 97.1 BUN/Creatinine Ratio 19.2 (10-20) Glucose 107 H (70-99) mg/dl Lactate 1.2 (0.4-2.0) mmol/L Calcium 10.0 (8.5-10.1) mg/dl Magnesium 2.2 (1.8-2.4) mg/dl Total Bilirubin 0.9 (0.2-1) mg/dl AST 38 H (15-37) U/L ALT 49 (12-78) U/L Alkaline Phosphatase 158 H (45-117) U/L Total Protein 8.5 H (6.4-8.2) gm/dl Albumin 3.5 (3.4-5.0) gm/dl Globulin 4.9 H (2.5-4.0) gm/dl Albumin/Globulin Ratio 0.7 L (0.9-2) Procalcitonin (0-0.5) ng/ml COVID-19 Eval Order SARS-CoV-2, RNA, NAAT (NEGATIVE) 10/24/20 Range/Units 12:16 WBC 8.88 (4.8-10.8) K/uL RBC 5.24 (4.7-6.1) M/uL Hgb 15.6 (14.0-18.0) g/dL Hct 45.9 (42-52) % MCV 87.6 (80-100) fL MCH 29.8 (25-34) pg MCHC 34.0 (32-36) g/dL RDW Std Deviation 42.7 (36.4-46.3) fL RDW Coeff of Fer 13.4 (11.5-14.5) % Plt Count 201 (130-400) K/uL MPV 10.5 H (7.4-10.4) fL Immature Gran % (Auto) 0.2 % Neut % (Auto) 65.7 % Lymph % (Auto) 27.3 % [place] % (Auto) 5.4 % Eos % (Auto) 1.1 % Baso % (Auto) 0.3 % Neut # (Auto) 5.83 (1.4-6.5) K/uL Lymph # (Auto) 2.42 (1.2-3.4) K/uL [place] # (Auto) 0.48 (0.11-0.59) K/uL Eos # (Auto) 0.10 (0-0.5) K/uL Baso # (Auto) 0.03 (0-0.2) K/uL Immature Gran # (Auto) 0.02 (0.00-0.02) K/uL PT (9.0-12.0) Seconds INR (0.9-1.1) APTT (21.0-31.0) Seconds PTT Ratio Sodium (136-145) mmol/L Potassium (3.5-5.1) mmol/L Chloride (98-107) mmol/L Carbon Dioxide (21-32) mmol/L Anion Gap (3-11) BUN (7-18) mg/dl Creatinine (0.6-1.4) mg/dl Est Cr Clr Drug Dosing ml/min Est GFR ( Amer) Est GFR (Non-Af Amer) BUN/Creatinine Ratio (10-20) Glucose (70-99) mg/dl Lactate (0.4-2.0) mmol/L Calcium (8.5-10.1) mg/dl Magnesium (1.8-2.4) mg/dl Total Bilirubin (0.2-1) mg/dl AST (15-37) U/L ALT (12-78) U/L Alkaline Phosphatase (45-117) U/L Total Protein (6.4-8.2) gm/dl Albumin (3.4-5.0) gm/dl Globulin (2.5-4.0) gm/dl Albumin/Globulin Ratio (0.9-2) Procalcitonin (0-0.5) ng/ml COVID-19 Eval Order SARS-CoV-2, RNA, NAAT (NEGATIVE) Diagnostic Findings No additional diagnostic findings.
[2020-10-27] MEDS: DAPTOmycin 425 MG in SYRINGE 0 ML IV SCH (13:01)
--- NOTE | 2020-10-27 15:56 | Podiatry Consultation ---
Date of Consultation October 27, 2020 Assessment & Plan (1) Diabetic foot ulcer associated with type 2 diabetes mellitus: Diabetic foot ulcer location: midfoot Laterality: left Non- pressure ulcer stage: limited to breakdown of skin Qualified Code(s): E11.621 - Type 2 diabetes mellitus with foot ulcer; L97.421 - Non-pressure chronic ulcer of left heel and midfoot limited to breakdown of skin (2) Type 2 diabetes mellitus with diabetic neuropathy: (3) Osteomyelitis: History of Present Illness Attending Physician: Ruperto Prado DO Patient is a very pleasant 60 year old male diabetic patient seen at bedside this afternoon for osteomyelitis of the left distal phalanx of the great toe per MRI performed while in house.Patient is wheel chair bound, he has a history of a prior left 2nd toe amputation related to a different wound. I had a long discussion with the patient concerning treatment of his osteomyelitis, we discussed antibiotics vs amputation. I discussed that patient would require a hallux amputation, not just a distal Symes amputation because of the placement of the ulceration. At this point patient is declining the hallux amputation and was like to treat with abx for 6 weeks vs surgical amputation. I discussed with patient that would require him to continue wound clinic visits for local wound care, along with the abx. And we had a kellie discussion that if the wound would worsen, or patient develop systemic signs of infection he would require the hallux amputation, and he was understanding of that risk. At this time I recommend for patient to continue po abx per medicine service I checked his wound cultures and he grew grp B strep susceptible to ampicillin, vanco, PCN, and cephalosporins patient will f/u with me in clinic post d/c on Tuesday11/03/2020 for continued care, will recommend f/u with the wound clinci as well Allergies Allergy/AdvReac Type Severity Reaction Status Date / Time linagliptin Allergy Severe ANAPHYLAXIS Verified 10/24/20 11:57 AND SORES ON TONGUE sitagliptin Allergy Severe ANAPHYLAXIS Verified 10/24/20 11:57 AND SORES ON TONGUE pantoprazole [From Protonix] AdvReac Unknown C-Diff Verified 10/24/20 11:57 Home Medications Medication Instructions Recorded Confirmed Type Levemir U-100 Insulin 48 unit SUBCUT DAILY@1700 #0 08/02/17 10/24/20 History baclofen 40 mg PO HS #0 08/02/17 10/24/20 History gabapentin 300 mg PO TID #0 08/02/17 10/24/20 History lactobacillus combination no.4 3,000 mmu cells PO DAILY@1500 04/15/19 10/24/20 History [Probiotic] multivitamin 1 tab PO DAILY@2100 10/24/20 10/24/20 History Patient History Medical History Acquired claw toe of right foot Acquired hallux valgus of right foot Amputated toe of left foot Callus Diabetes mellitus, type 2 IDDM Gastric outlet obstruction Hallux valgus (acquired), left foot Hyperlipidemia Left midfoot ulcer Obesity Osteomyelitis of low back 04/2014 Patient's noncompliance with other medical treatment and regimen Type 2 diabetes mellitus with diabetic neuropathy Type 2 diabetes mellitus with diabetic polyneuropathy Surgical History H/O skin graft SKIN GRAFT- NON-HEALING LEFT GREAT TOE History of appendectomy History of colonoscopy History of elbow surgery left History of lumbar surgery multiple Family History Father Family history of diabetes mellitus Brother Family history of diabetes mellitus Social History Smoking Status: Never smoker Second Hand Exposure: No; Hx Alcohol Use: Yes Alcohol type: beer and wine Hx Substance Use: No Preferred Language: Uzbek Communication Ability: Effective 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 Arterial dopplers reviewed and show stable circulation of the left foot Results & Data ([facility]) Vital Signs (Past 12 Hours) Vital Signs Temp Pulse Resp BP Pulse Ox 10/27/20 06:41 36.5 C 67 19 132/79 96
[2020-10-27] MEDS: INSULIN DETEMIR FLEXPEN/FLEX TOUCH 100 UNITS/ML 3ML SC SCH (18:21)
--- NOTE | 2020-10-27 18:58 | Billing Data ---
Date of Service October 27, 2020 Coding Level of Care Code 17841 Subseq Hosp Care Lvl 3
[2020-10-27] MEDS: MULTIVITAMIN TAB PO SCH (20:32)
[2020-10-27] MEDS: ACETAMINOPHEN 500 MG TAB PO PRN (20:33)
[2020-10-27] MEDS: BACLOFEN 20 MG TAB PO SCH (22:52)
[2020-10-28] MEDS: SACCHAROMYCES BOULARDII 250 MG CAP PO SCH (09:01)
[2020-10-28] MEDS: GABAPENTIN 300 MG CAP PO SCH ×2 (09:01→14:07)
[2020-10-28] MEDS: ENOXAPARIN INJ 40 MG/0.4 ML SYR SQ SCH (09:02)
[2020-10-28] MEDS: INSULIN ASPART 100 UNITS/ML 3 ML PEN SC SCH ×2 (09:06→13:28)
[2020-10-28] MEDS: cefTRIAXone SODIUM 2,000 MG in DEXTROSE 5% 50 ML IV SCH (09:15)
--- NOTE | 2020-10-28 13:24 | Med Student Discharge Summary ---
Date of Service October 28, 2020 Admission HPI Per Admitting Provider 60-year-old male comes to emergency room for evaluation of her left great toe ulceration. Patient has a history of diabetes, kidney disease, multiple diabetic foot ulcers, C. difficile, osteomyelitis to spine in 2015 (following fall) and left second toe infection in 2017 resulting in amputation. Patient accidentally hit toe on his wheelchair approximately 1 week, while he was confused secondary to feeling ill from a "cold or flu" and tried to walk; resulting in hitting his toe on his wheel chair. The wound is associated with mild erythema, purulent drainage, and neuropathy is present as always. Patient was taking care of the wound at home with peroxide and algae dressing that he had left over. Yesterday in the shower "the blister" popped and "drained a large amount of yellow green fluid" per the patient. The drainage also had a strong odor to it. Patient has multiple wound cultures from the past July 2018 and September 2018 + for Enterococcus faecalis September 26 + for Klebsiella and Proteus mirabilis. Patient received 500 mg Meropenem and Daptomycin in the EMD, wound culture and blood culture pending, 1L 0.9% sodium Chloride. Q sofa 0, no organ dysfunction, normal lactate, PCT 1.47. Will admit patient to medicine floor for antibiotic therapy of diabetic foot ulcer awaiting cultures. Admission Exam (Per Admitting) Constitutional well developed, well nourished and + obese Eyes PERRL, conjunctivae normal, anicteric sclerae ENMT external ear and nose normal, oropharynx normal Neck trachea midline, no thyromegaly Respiratory normal respiratory effort, lungs clear to auscultation Cardiovascular RRR, no murmur, no edema Chest (Breasts) normal inspection/palpation of breasts Gastrointestinal (Abdomen) normal bowel sounds, soft, nontender, no hepatosplenomegaly Musculoskeletal no cyanosis or clubbing, extremities motor strength 5/5 Skin + errythema to left foot, ulceration to underside of left great toe. There is a small exit area from where the bullae/blister popped and this draining purulent drainage with slight fluctuance and some eschar to the toe. Psychiatric A+Ox3, euthymic affect Discharge Data Consultations 10/25/20 14:22 Consult Podiatry Routine 10/27/20 18:55 Consult Infectious Diseases Routine 10/28/20 13:18 Consult Case Management - Discharge Planning Routine Diabetes Follow Up Diabetes Follow Up: Diabetes Follow-up Needed for HgbA1c >9% Hospital Course (1) Osteomyelitis: -Hx diabetic foot ulcers s/p amputation of L. second toe -Foot XR showed soft tissue ulceration and cellulitis of the L. first digit -MRI of foot confirmed osteomyelitis L. first digit - Would culture of toe (+) pasturella multicoida, Group B strep -received meropenam and daptomycin (10/24- 10/26), meropenam dc (10/26), switched to ceftriaxone (10/27) -wound care consulted, following with patient -podiatry consulted, recommended a hallux amputation, not just a distal Symes amputation. Patient declined hallux amputation and favored antibiotics. -ID consulted to evaluate whether or not patient required IV vs. PO antibiotics -ID recommended PO antibiotics: Augmentin 875mg X 4 weeks with close wound care and podiatry followup (2) Bacteremia: -Blood Cx (+) coag neg staph (not lugenesis) 10/12 vials -WBC stable 7.18 -Positive cx likely to be contaminate; however, in the setting of osteomyelitis, likelihood of bacteremia is very high. Will continue with Abx (3) Type 2 diabetes mellitus with diabetic neuropathy: -HgbA1c 10.5 -Inpatient glucose readings have been between 100-250 -Continue home regimen of 48 units of levemir -Insulin sliding scale ordered -Continue home med gabapentin 300 mg TID for peripheral neuropathy - Pt was counseled about the link between diabetes and diabetic foot ulcers and the importance of checking blood sugar frequently and maintaining a low sugar, low carbohydrate diet Discharge Plan Discharge Items Patient Disposition: Home - Home Health Services Reason For Visit: WOUND INFECTION Discharge Diagnosis: osteomyelitis/cellulitis Condition on Discharge: Fair Activity: Resume your previous activity Non-emergency contact: Primary Care Provider Call non-emergency contact if: you have any medication questions, your symptoms worsen, your pain is not controlled, your temperature is above 101.5 and your wound has increased drainage Follow-up/Referrals: Yesenia Frankel DPM [Physician] - 12/23/20 (~2 wks f/u based on availability ) Naun Salcedo MD [Primary Care Provider] - 11/03/20 1:00 pm Diet: Carb Consistent or DM2 Addtl Attending Provider Instructions: You were admitted with concerns of foot cellulitis/osteomyelitis. Blood cultures confirmed an infection. You were treated with IV antibiotics. Our ID physician was consulted and you both had an extensive discussion on future choices and management moving forward. They believe that this will ultimately require some sore of surgical procedure, however we will attempt to treat with oral antibiotics and see how this progresses. Please follow the below instructions on discharge: -You will take oral Augmentin for 6 weeks minimum. This has been sent to your pharmacy ([facility] [place]). This may be need to be extended based on clinical progression and will be assessed at your follow up appts as outlined below -You will need to follow up with podiatry ~2 weeks time for follow up. They will assess how your foot is doing at this time and then make appropriate follow up -we will make an appt for you to follow up with wound care VELIA on discharge -Please follow up with your PCP/family doctor within one week of discharge for normal hospital follow up Pending Studies at Discharge: No Stand-Alone Forms: [facility], Opioid Pain Management, Work/School Release (Inpt), Smoking Cessation Medications and DC Order Prescriptions: New amoxicillin-pot clavulanate [Augmentin] 875-125 mg tablet 1 tab PO BID 42 Days Qty: 84 RF: 0 Continued baclofen 20 mg Tablet 40 mg PO HS Qty: 0 RF: 0 gabapentin 300 mg Capsule 300 mg PO TID Qty: 0 RF: 0 Levemir U-100 Insulin 100 unit/mL Solution 48 unit subcut DAILY@1700 Qty: 0 RF: 0 Probiotic 3 billion cell Capsule 3,000 mmu cells PO DAILY@1500 RF: 0 multivitamin Tablet 1 tab PO DAILY@2100 RF: 0 Discharge Orders: Discharge Order (Routine); Ordered 10/28/20 Ordered By: Chris Garner/Other Patient Handouts: Diabetes Treating Minor Foot ..., Diabetes Treat Severe Foot Infecs, Diabetes: Sick-Day Plan Admission Data Admit Date/Time: 10/25/20 14:53 Attending Provider: Ruperto Prado Admit Provider: Danielle Nicholas Primary Care Provider: Naun Salcedo Other Providers: Radha Zheng ; Danielle Nicholas ; Yesenia Frankel ; Betsy Mcelroy ; Yogi Doll ; Chaka Randolph ; Deangelo Russ I. ; Brennon Bey II ; Selene Weinberg ; Ellis Andino ; [facility] Other Interventions: Discharge Summary Assessment (RN) Last Done: 10/28/20 15:12 Supervising Attestation I personally examined the patient and verified all nolasco points of history and exam, discussed case, and agree with decision making with Hazel Suazo MS4. feeling up to going home. ID input appreciated. reiterated importance of good care in order to have best chance possible at avoiding amputation vitals noted nad heent nc at mmm breathing unlabored no accessory muscles no tracking erythema on leg DM foot infection w osteomyelitis - d/c home on augmentin as rec'd by ID. close pods/wound/pcp f/u DM - uncontrolled. educated extensively - main focus being critical role for lifestyle in DM control, also discussed importance of control in minimizing immune suppression/allowing for healing, as well as local [employer] risks of microvascular ischemia otherwise as above
[2020-10-28] MEDS: DAPTOmycin 425 MG in SYRINGE 0 ML IV SCH (14:07)
--- NOTE | 2020-10-28 19:30 | Billing Data ---
Date of Service October 28, 2020 Coding Level of Care Code D/C Day Management <30 mins
== END 2020-10-28 16:45 | disposition home health service (06) | DRG 638 ==
LOC: ED 11:06 → 3N 11:06 → SUATTDRO 15:45 → 3N 17:11 → SUATTDRO 10-25 14:53
DX: L97.421 Non-pressure chronic ulcer of left heel and midfoot limited to breakdown of skin; Z89.429 Acquired absence of other toe(s), unspecified side; E11.42 Type 2 diabetes mellitus with diabetic polyneuropathy; E88.81 Metabolic syndrome and other insulin resistance; K21.9 Gastro-esophageal reflux disease without esophagitis; E11.621 Type 2 diabetes mellitus with foot ulcer; E11.69 Type 2 diabetes mellitus with other specified complication; R78.81 Bacteremia; M86.8X7 Other osteomyelitis, ankle and foot; Z91.19 Patient's noncompliance with other medical treatment and regimen